=== PATIENT | male | born 1970 | race Caucasian/White ===

== ENCOUNTER → 2016-10-11 10:15 | Outpatient (CLI) | payer MEDICARE, MEDICAID | END | disposition home or self-care (01) | LOC: D.RAD 09-29 11:30 | DX: R13.10 Dysphagia, unspecified (principal) ==

== ENCOUNTER → 2016-10-13 11:03 | Outpatient (CLI) | payer MEDICARE | END | disposition home or self-care (01) | LOC: D.NM 09-28 13:00 | DX: R68.81 Early satiety (principal) ==

== ENCOUNTER → 2018-03-21 07:06 | Outpatient (CLI) | payer MEDICARE ==
[~2018-03-21] VITALS: Ht 180.3 cm; Wt 106.8 kg
--- NOTE | ~2018-03-21 | HEMODYNAMI ---
PATIENT:JAYLA SIBLEY MEDICAL RECORD: [id number] : 66 LOCATION:[facility] ADMISSION DATE: 03/21/18 Generatedon:03/21/201813:02 Patient name: JAYLA SIBLEY Patient #: [id number] SSN: : 1970 Date of study: 03/21/2018 Page: Of Hemodynamic Procedure Report Patient Data Patient Demographics Procedure consent was obtained First Name: JAYLA Gender: Male Last Name: TOÑITO : 1970 [facility] Initial: C Age: 47 year(s) Patient #: [id number] Race: Unknown Additional ID: [id number] Contact details [address]: [address] [place] [address] State: [place] City: [place] Zip code: [address] Past Medical History Allergies Allergen Reaction Date Comments Reported Acetaminophen 03/21/2018 Admission Admission Data Admission Date: 03/21/2018 Admission Time: 7:06 Procedure Procedure Types Cath Procedure Peripheral Cath Diagnostic Procedure Venography Extremity Procedure Description Procedure Date Procedure Date: 03/21/2018 Procedure Start Time: 11:45 Procedure Staff Name Function Atif Paul MD Performing Physician Jossy Montalvoub Manuel Chaves RT Monitor Natacha Mcneill RN Nurse Procedure Data Cath Procedure Fluoroscopy Diagnostic fluoroscopy Total fluoroscopy Time: 14 time: 14 min min Diagnostic fluoroscopy Total fluoroscopy dose: 658 dose: 658 mGy mGy Contrast Material Contrast Material Type Amount (ml) Isovue 300 105 Entry Location Entry Primary Successful Side Size Upsize 1 Upsize Entry Closure Successful Closure Location (Fr) (Fr) 2 (Fr) Remarks Device Remarks Femoral Right 5 Fr 6 Fr Angio-VIP artery Mid-Length 6Fr Procedure Medications Medication Administration Route Dosage Oxygen etCO2 Nasal cannula 4 l/min Lidocaine 1% added to field 20 Heparin Flush Bag added to field 3 bags (1000units/500ml NS) Versed I.V. 2 mg Fentanyl I.V. 50 mcg Fentanyl I.V. 50 mcg Versed I.V. 2 mg Fentanyl I.V. 50 mcg Heparin Bolus I.V. 5000 units Fentanyl I.V. 50 mcg Hemodynamics Rest Heart Rate: 51 (bpm) Snapshots Pre Cath Intra NCS Post Cath Vital Signs Time Heart Resp SPO2 etCO2 NIBP (mmHg) Rhythm Pain Sedation Rate (ipm) (%) (mmHg) Status Level (bpm) 11:21:47 52 18 98 35.2 Measuring SB 0 (11) 10(A) , No pain 11:22:30 48 12 98 37.4 160/95(120) SB 0 (11) 10(A) , No pain 11:27:27 52 14 99 26.2 164/41(135) SB 0 (11) 9(A) , No pain 11:31:57 51 16 98 37.4 159/97(117) SB 0 (11) 9(A) , No pain 11:36:56 50 16 98 35.2 Measuring SB 0 (11) 9(A) , No pain 11:38:18 53 20 97 33.7 Time SB 0 (11) 9(A) Exceeded , No pain 11:42:59 50 25 98 35.2 148/98(114) SB 0 (11) 9(A) , No pain 11:47:21 51 17 97 40.4 135/84(102) SB 0 (11) 8(A) , No pain 11:51:49 49 13 97 52.4 139/79(98) SB 0 (11) 8(A) , No pain 11:56:20 49 8 98 38.9 132/78(100) SB 0 (11) 8(A) , No pain 12:00:46 50 14 92 48.6 138/83(106) SB 0 (11) 8(A) , No pain 12:05:45 48 12 93 41.1 Measuring SB 0 (11) 8(A) , No pain 12:06:14 50 10 92 41.9 127/70(94) SB 0 (11) 8(A) , No pain 12:10:38 47 9 93 37.4 123/77(113) SB 0 (11) 8(A) , No pain 12:14:58 49 9 92 41.1 134/88(104) SB 0 (11) 8(A) , No pain 12:19:24 46 9 92 35.9 137/83(105) SB 0 (11) 8(A) , No pain 12:23:45 45 17 92 29.2 104/87(99) SB 0 (11) 8(A) , No pain 12:27:57 46 18 92 32.2 122/85(108) SB 0 (11) 8(A) , No pain 12:32:17 46 12 100 40.4 133/85(96) SB 0 (11) 8(A) , No pain 12:36:43 49 13 100 31.4 133/82(111) SB 0 (11) 8(A) , No pain 12:41:03 48 13 100 32.9 141/90(113) SB 0 (11) 8(A) , No pain 12:46:02 48 14 100 32.9 Measuring SB 0 (11) 8(A) , No pain 12:46:29 47 16 100 33.6 160/78(124) SB 0 (11) 8(A) , No pain 12:51:28 48 13 100 34.4 Measuring SB 0 (11) 8(A) , No pain 12:52:19 48 14 100 29.9 161/102(126) SB 0 (11) 8(A) , No pain 12:56:37 51 15 99 37.4 142/94(109) SB 0 (11) 8(A) , No pain 13:01:01 50 13 98 26.1 141/97(115) SB 0 (11) 8(A) , No pain Medications Time Medication Route Dose Verified Delivered Reason Notes Effectiveness by by 11:25:56 Oxygen etCO2 4 Atif Manzano used for Nasal l/min sOito Paul RN procedure cannula 11:26:09 Lidocaine 1% added 20ml Atif Srivastava used for to vial Humberto Paul MD procedure field FLORES 11:26:25 Heparin Flush added 3 Atif Srivastava used for Bag to bags Hmuberto Paul MD procedure (1000units/500ml field FLORES NS) 11:44:05 Versed I.V. 2 mg Atif Manzano for sedation Mostly Osito Paul RN sleeping @ 11:51:38 11:44:18 Fentanyl I.V. 50 Atif Zarateine for sedation Mostly mcg Osito Paul RN sleeping @ 11:51:41 11:51:34 Fentanyl I.V. 50 Atif Manzano for sedation Mostly mcg Osito Paul RN sleeping @ 12:01:03 12:00:52 Versed I.V. 2 mg Atif Manzano for sedation Mostly Osito Paul RN sleeping @ 12:10:53 12:00:59 Fentanyl I.V. 50 Atif Manzano for sedation Mostly mcg Osito Paul RN sleeping @ 12:10:47 12:09:07 Heparin Bolus I.V. 5000 Atif Manzano for units Osito Paul RN anticoagulation 12:40:47 Fentanyl I.V. 50 Atif Manzano for sedation mcg Osito Paul RN, MD Procedure Log Time Note 11:06:08 Manuel Andie RT (R) (CV) sent for patient. Start room use. 11:06:20 Time tracking: Regular hours (M-F 7:00 - 5:00) 11:06:26 Plan of Care:Hemodynamics will remain stable., Cardiac rhythm will remain stable., Comfort level will be maintained., Respiratory function will remain adequate., Patient/ family verbilizes understanding of procedure., Procedure tolerated without complication., Recovers from procedure without complications.. 11:06:31 Patient received from Outpatients to IR Alert and oriented. Tansferred to table in Supine position. 11:06:32 Correct patient and procedure confirmed by team. 11:06:34 Signed procedure consent form obtained from patient. 11:06:34 ECG and BP/O2 sat monitors applied to patient. 11:06:36 - 11:06:40 H&P Date Dictated: 03/21/2018 H&P Addendum completed by physician on da y of procedure. (MUST COMPLETE FOR ALL OUTPATIENTS). 11:06:40 Pre-procedure instructions explained to patient. 11:06:41 Pre-op teaching completed and patient verbalized understanding. 11:07:31 Family in waiting room. 11:07:37 Patient NPO since Midnight. 11:08:10 Patient allergic to Acetaminophen 11:08:19 Use device set IR Diagnostic 11:08:20 ACIST Syringe (19712) opened to sterile field. 11:08:21 ACIST Hand Control (73972) opened to sterile field. 11:08:21 ACIST Manifold (60703) opened to sterile field. 11:08:21 Bag Decanter () opened to sterile field. 11:08:22 Sterile Angiographic Pack opened to sterile field. 11:08:31 Is the patient allergic to Iodine/contrast media? No. 11:08:33 Is patient on blood thinner?Yes 11:08:36 ACC The patient was administered the following blood thiners within the last 24 hours: ACCAspirin, ACCPlavix 11:08:38 Patient diabetic? No. 11:08:39 - 11:08:40 ----Pre-sedation anethsthesia assessment.---- 11:08:42 Previous problem with sedation/anesthesia? No ? 11:08:43 Snore? Yes 11:08:45 Sleep apnea? No 11:08:51 Deviated septum? No 11:08:52 Opens mouth fully? Yes 11:08:53 Sticks out tongue? Yes 11:08:56 Airway obstruction? No ? 11:09:06 Dentures? No ? 11:19:57 Vital chart was started 11:19:58 Baseline sample Acquired. 11:20:00 Full Disclosure recording started 11:20:20 Pre procedure: right dorsailis pedis pulse Doppler 11:20:24 Pre procedure: left dorsailis pedis pulse Doppler 11:20:27 Pre procedure: right posterior tibial pulse Doppler 11:20:30 Pre procedure: left posterior tibial pulse Doppler 11:20:34 Patient pain scale 0/10 no pain. 11:20:46 IV patent on arrival in left forearm with 0.9% NaCl at [facility]. 11:20:48 Sharps counted by scrub and verified by R.N. 11:20:48 Alarms reviewed by R. N. 11:20:52 Left groin area was prepped with chlora-prep and draped in sterile fashion 11:25:56 Oxygen 4 l/min etCO2 Nasal cannula was administered by Natacha Mcneill RN; used for procedure; 11:26:09 Lidocaine 1% 20ml vial added to field was administered by Atif Paul MD; used for procedure; 11:26:25 Heparin Flush Bag (1000units/500ml NS) 3 bags added to field was administered by Atif Paul MD; used for procedure; 11:36:31 Tegaderm 4 x 4 (1626W) opened to sterile field. 11:42:14 Physician arrived 11:42:14 --------ALL STOP TIME OUT------ 11:42:15 Final Timeout: patient, procedure, and site verified with staff and physician. All members of the team are in agreement. 11:42:18 Left groin site verified by team. 11:42:23 Sedation plan: IV Moderate Sedation Medication:Versed, Fentanyl 11:44:05 Versed 2 mg I.V. was administered by Natacha Mcneill RN; for sedation; 11:44:18 Fentanyl 50 mcg I.V. was administered by Natacha Mcneill RN; for sedation; 11:45:02 Procedure started. 11:45:06 Local anesthetic to left femerol artery with Lidocaine 1% by Atif Paul MD.INITIAL ACCESS ONLY 11:45:13 Angiodynamics Omniflush 5Fr 65cm (87780811) opened to sterile field. 11:45:13 SHEATH 5FR Carmel (GTD595) opened to sterile field. 11:45:13 DOC .035 wire (I32151) opened to sterile field. 11:45:14 Micropuncture VSI 4FR kit opened to sterile field. 11:45:14 TUBING Contrast Injection High Pressure (HDN329S) opened to sterile field. 11:51:34 Fentanyl 50 mcg I.V. was administered by Natacha Mcneill RN; for sedation; 11:51:38 Effectiveness of Versed delivered @ 11:44:05 is: Mostly sleeping 11:51:41 Effectiveness of Fentanyl delivered @ 11:44:18 is: Mostly sleeping 11:52:42 OSBORN 260 wire (D01389) opened to sterile field. 11:53:28 GLIDE CATHETER 5FR ANGLED 65cm (CG507) opened to sterile field. 11:53:49 GLIDE WIRE ANGLE 180cm (NT5389) opened to sterile field. 11:54:02 TORQUE DEVICE PLASTIC .038 ( TD01) opened to sterile field. 12:00:52 Versed 2 mg I.V. was administered by Natacha Mcneill RN; for sedation; 12:00:59 Fentanyl 50 mcg I.V. was administered by Natacha Mcneill RN; for sedation; 12:01:03 Effectiveness of Fentanyl delivered @ 11:51:34 is: Mostly sleeping 12:02:57 A 5 Fr sheath was inserted into the Right Femoral artery 12:03:09 SHEATH 6FR Destination (RSR01) opened to sterile field. 12:03:31 Sheath upsized to a 6 Fr Mid-Length. 12:04:34 CXI SUPPORT .035 135 CM STR catheter (K33458) opened to sterile field. 12:07:39 GLIDE WIRE MERIT Angled 260cm ([id number]) opened to sterile field. 12:09:07 Heparin Bolus 5000 units I.V. was administered by Natacha Mcneill RN; for anticoagulation; 12:10:47 Effectiveness of Fentanyl delivered @ 12:00:59 is: Mostly sleeping 12:10:53 Effectiveness of Versed delivered @ 12:00:52 is: Mostly sleeping 12:12:13 ROADRUNNER .035 260 glide wire (U57043) opened to sterile field. 12:17:48 Trailblazer 0.035 135cm catheter ([id number]) opened to sterile field. 12:31:06 PULSE OLXIMETER SWITCHED TO EAR NOT PICKING UP GOOD 12:34:46 SHEATH 6FR Carmel (ZKF953) opened to sterile field. 12:39:30 EXOSEAL 6Fr (EX600) opened to sterile field. 12:40:47 Fentanyl 50 mcg I.V. was administered by Natacha Mcneill RN; for sedation; 12:47:52 ANGIOSEAL-VIP PLUS 6 FR opened to sterile field. 12:49:36 Sheath removed intact; hemostasis achieved with Angio-VIP 6Fr to the Right Femoral artery. 12:50:05 Procedure ended.(Physican Out) 12:50:13 Fluoroscopy time 14.00 minutes. 12:50:17 Flurop Dose total: 658 12:50:17 Fluoroscopy dose: 658 mGy 12:50:20 Sharps counted by scrub and verified by R.N. 12:50:24 Insertion/operative site no bleeding no hematoma. 12:50:27 Post-op/insertion site Left Femoral artery dressed using a 4 x 4 and Tegaderm. 12:50:31 Post left femerol artery:stable 12:50:35 Post Procedure Pulses reassessed and unchanged 12:50:36 Post procedure instruction explained to patient.Patient verbalizes understanding. 12:50:37 Procedure and supply charges have been captured, reviewed, submitted an d are correct. 12:58:00 Contrast amount:Isovue 300 105ml. 13:01:44 Report given to Outpatients. 13:01:47 Patient transfered to Outpatients with Stretcher. 13:02:11 Vital chart was stopped Device Usage Item Name Manufacture Quantity Catalog Number Hospital Part Current Minimal Lot# / Charge Number Stock Stock Serial# Code ACIST Syringe Acist Medical 1 62183 172764 194568 374278 20 (78901) Systems Inc ACIST Hand Acist Medical 1 45044 803252 509737 646720 5 Control (81946) Systems Inc ACIST Manifold Acist Medical 1 60683 103193 118096 385232 5 (27632) Systems Inc Bag Decanter Microtek 1 2001S 787210 89168 818675 5 (2001S) Medical Inc. Sterile Cardinal 1 [id number] 321501 636755 5 Angiographic Health Pack Tegaderm 4 x 4 3M 1 1626W 195605 899663 371711 5 (1626W) Angiodynamics Angiodynamics 1 77556048 470448 042555 965815 5 Omniflush 5Fr 65cm (47314651) SHEATH 5FR Terumo 1 HMK284 151755 675628 705811 40 Carmel (ZGW730) DOC .035 wire Cook Medical 1 F45423 126746 873787 5 (T04064) Micropuncture VSI VASCULAR 1 7266V 836182 264880 5 VSI 4FR kit SOLUTIONS TUBING Contrast Merit Medical 1 FPL098A 621256 683396 031708 5 Injection High Pressure (OSY934Q) OSBORN 260 wire Cook Medical 1 E24733 711927 07750 788803 5 (V33764) GLIDE CATHETER Terumo 1 CG507 447217 225985 5 5FR ANGLED 65cm (CG507) GLIDE WIRE Terumo 1 SH7628 717716 985973 759696 5 ANGLE 180cm (AX1738) TORQUE DEVICE [place] 1 TD01 564109 923929 526961 5 PLASTIC .038 ( Scientific TD01) SHEATH 6FR Terumo 1 RSR01 856290 07971 746626 5 Destination (RSR01) CXI SUPPORT Cook Medical 1 B84671 073113 535902 576522 5 9857900 .035 135 CM STR catheter (V56374) GLIDE WIRE [facility] Medical 1 [id number] 229728 876552 107850 5 [id number] MERIT Angled 260cm ([id number]) ROADRUNNER .035 Cook Medical 1 I58899 713461 346532 918879 5 1501118 260 glide wire (Y67686) Trailblazer Medtronic 1 ASC-035-135 232489 21804 645315 5 0.035 135cm catheter ([id number]) SHEATH 6FR Terumo 1 ITV682 620713 656367 068557 40 Carmel (JWP582) EXOSEAL 6Fr Cardinal 1 EX600 282890 805795 549699 10 [id number] (EX600) Health ANGIOSEAL-VIP [facility] [place] 1 986927 070925 984197 5 [id number] PLUS 6 FR Signature Audit [place] Time Signature Unsigned Intra-Procedure 03/21/2018 [place] 1:02:07 PM [place] RT (R) (CV) Signatures Monitor : Manuel Signature : [place] RT Date : Time : [facility] [address] [place] [address]
[~2018-03-21 07:06] MED LIST: BAYER CHEWABLE81 MG PO; PLAVIX75 MG PO
[2018-03-21 07:40] LABS: BASOPHILS 0.3 % (0-2); EOSINOPHILS 3.2 % (0-7); HEMATOCRIT 44.4 % (42.0-54.0); IMMATURE GRANULOCYTES 0.1 % (0-5); LYMPHOCYTES 34.1 % (15-50); MCH 32.3 pg (26.0-34.0); MCV 89.7 fL (80.0-100.0); MEAN PLATELET VOLUME 9.5 fL (7.4-10.4); MONOCYTES 5.4 % (2-11); NEUTROPHILS 56.9 % (40-80); PLATELET COUNT 167 10x3/uL (130-400); RBC 4.95 10x6/uL (4.20-6.10); RDW 13.2 % (11.5-14.5); WBC 6.8 10x3/uL (4.8-10.8)
[2018-03-21 08:01] LABS: APTT 27.3 SECONDS (22.8-39.4); CALC OSMOLALITY 281 mosm/kg (275-300); CALCIUM 9.6 mg/dL (8.5-10.1); CARBON DIOXIDE 27.8 mmol/L (21.0-32.0); CHLORIDE - SERUM 103 mmol/L (98-107); GLUCOSE 103 mg/dL (74-106); INR 1.01 (0.85-1.17); POTASSIUM - SERUM 4.1 mmol/L (3.5-5.1); PROTIME 12.9 SECONDS (11.6-15.0); SODIUM 140 mmol/L (136-145); UREA NITROGEN 21 mg/dL (7-18); eGFR NON AFRICAN AMERICAN 84 mL/min (90-120)
[2018-03-21 08:42] VITALS: BP 147/74; Ht 180.3 cm; Wt 106.8 kg
== END | disposition home or self-care (01) ==
LOC: D.RAD 03-20 10:00 → D.SP 07:06 → D.RAD 10:00
PROVIDERS: General Practice
DX: I70.411 Atherosclerosis of autologous vein bypass graft(s) of the extremities with intermittent claudication, right leg (principal); I70.92 Chronic total occlusion of artery of the extremities

== ENCOUNTER → 2018-03-27 13:27 | Outpatient (CLI) | payer MEDICARE ==
[2018-03-21 08:42] VITALS: BMI 32.8
== END | disposition home or self-care (01) ==
LOC: D.RAD 13:27
DX: I73.9 Peripheral vascular disease, unspecified (principal)

== ENCOUNTER 2018-04-11 05:15 | Inpatient (IN) | payer MEDICARE, MEDICAID ==
[2018-04-09 14:39] LABS: BASOPHILS 0.3 % (0-2); HEMATOCRIT 47.5 % (42.0-54.0); HEMOGLOBIN 16.6 g/dL (13.5-17.5); LYMPHOCYTES 32.5 % (15-50); MCHC 34.9 g/dL (31.0-37.0); MCV 91.7 fL (80.0-100.0); MONOCYTES 5.9 % (2-11); NEUTROPHILS 58.3 % (40-80); PLATELET COUNT 179 10x3/uL (130-400); RBC 5.18 10x6/uL (4.20-6.10); RDW 13.3 % (11.5-14.5); WBC 5.7 10x3/uL (4.8-10.8)
[2018-04-09 14:53] LABS: APPEARANCE CLEAR (CLEAR); COLOR YELLOW (YELLOW)
[2018-04-09 14:54] LABS: BILIRUBIN NEGATIVE (NEGATIVE); GLUCOSE NEGATIVE (NEGATIVE); KETONE NEGATIVE (NEGATIVE); NITRITE NEGATIVE (NEGATIVE); PROTEIN NEGATIVE (NEGATIVE); UROBILINOGEN NORMAL (NORMAL)
[2018-04-09 14:58] LABS: APTT 27.9 SECONDS (22.8-39.4); INR 1.01 (0.85-1.17); PROTIME 12.9 SECONDS (11.6-15.0)
[2018-04-09 15:07] LABS: ALBUMIN 4.1 g/dL (3.4-5.0); ALKALINE PHOSPHATASE 43 U/L (46-116); ALT (SGPT) 30 U/L (10-68); BILIRUBIN - TOTAL 1.25 mg/dL (0.2-1.3); CALC OSMOLALITY 279 mosm/kg (275-300); CALCIUM 9.1 mg/dL (8.5-10.1); CARBON DIOXIDE 27.3 mmol/L (21.0-32.0); CHLORIDE - SERUM 103 mmol/L (98-107); CREATININE - SERUM 1.1 mg/dL (0.6-1.3); GLUCOSE 91 mg/dL (74-106); POTASSIUM - SERUM 3.7 mmol/L (3.5-5.1); PROTEIN - SERUM 7.9 g/dL (6.4-8.2); SODIUM 140 mmol/L (136-145); UREA NITROGEN 16 mg/dL (7-18); eGFR NON AFRICAN AMERICAN 75 mL/min (90-120)
[~2018-04-11] VITALS: Ht 175.3 cm; Wt 115.5 kg
[2018-04-11] VITALS (25 sets, daily range): BP systolic 116–146; BP diastolic 63–82; Ht 175.3 cm; Wt 115.5 kg
--- NOTE | ~2018-04-11 | MORECARE ---
CASE MANAGEMENT DISCHARGE SUMMARY PATIENT: JAYLA SIBLEY UNIT: [id number] ADM DATE: 04/11/18 AGE: 47 : [birth year] SEX: M ROOM/BED: D[facility] AUTHOR: HOSEADOC PHYSICIAN: REFERRING PHYSICIAN: YIFAN FRANCO MD DATE OF SERVICE: 04/15/18 Discharge Plan Patient Name: JAYLA SIBLEY Facility: [facility]:[place] : 1970 Planned Disposition: Home Anticipated Discharge Date: Discharge Date: 04/15/2018 Expected LOS: Initial Reviewer: [email or web address] Initial Review Date: 04/12/2018 Generated: 04/15/18 6:43 pm Comments DCP- Discharge Planning Updated by [email or web address]: Angelia Houser on 04/15/18 1:[address] IMM explained and served 04/15/18 @ [facility]. Patient denies any discharge needs at this time. CM will continue to follow and assist as needed with discharge planning / needs. DCP- Discharge Planning Updated by [email or web address]: Angelia Houser on 04/12/18 6:[address] Patient Name: JAYLA SIBLEY Admission Status: Elective Accout number: [id number] Admission Date: 04-11-2018 : 1970 Admission Diagnosis:ATHSCL KETCHIKAN ARTERIES OF EXTRM W INTRMT CECI, RIGHT L Attending: YIFAN FRANCO Current LOS: 1 Anticipated DC Date: Planned Disposition: Home Primary Insurance: WELLConsumer Agent Portal (CAP) MEDICARE ADV Discharge Planning Comments: CM met with patient at bedside after obtaining verbal consent. Patient states he plans on returning home after discharge with his mother. Patient states he will have family transport him home via private vehicle. CM will set up patient with walker for home. CM contacted [place] Patient and records faxed. Walker to be delivered to patients room. CM will continue to follow and assist as needed for discharge planning / needs. Java Tech: Angelia Houser DCPIA - Discharge Planning Initial Assessment Updated by [email or web address]: Angelia Houser on 04/12/18 6:58 pm * Is the patient Alert and Oriented? Yes * How many steps to enter\exit or inside your home? * PCP no pcp * Preadmission Environment Home with Family * ADLs Independent * Equipment None * List name and contact numbers for known caregivers / representatives who currently or will assist patient after discharge: Michelle Maradiaga [phone] * Verbal permission to speak to the caregivers and representatives has been obtained from the patient. N/A * Community resources currently utilized None * Additional services required to return to the preadmission environment? No * Can the patient safely return to the preadmission environment? Yes * Has this patient been hospitalized within the prior 30 days at any hospital? 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
--- NOTE | ~2018-04-11 | HP ---
PATIENT: JAYLA SIBLEY MEDICAL RECORD: [id number] ACCOUNT: [id number] LOCATION:[facility] : [birth year] ADMISSION DATE: 04/11/18 PCP: YIFAN FRANCO MD HISTORY AND PHYSICAL EXAMINATION JAYLA Rush (47yo, M) ID# [id number]. Date/Time04/03/2018 11:49FPTBM02/26/1969[facility] ClinicProviderDANINATALEE FRANCO MDInsuranceMed Primary: WELLCARE (MEDICARE REPLACEMENT/ADVANTAGE - HMO) Insurance # : [id number] Employer Name : DISABLED Med Secondary: [place] Insurance # : [id number] Employer Name : N/A Prescription: CMX - Member is eligible. Prescription: [facility] MEDICAID ADMINISTRATION - Member is eligible. Chief Complaint PVD - peripheral vascular disease EVALUATE FOR POSSIBLE ABF Patient's Care Team Primary Care Provider: LUPIS LYNCH MD: [address] [facility] [address], [place] [address], , Vitals BP:124/78 sitting R arm 04/03/2018 12:07 pmBP Cuff Size:adult 04/03/2018 12:07 pmHR:68/REG 04/03/2018 12:07 pmHt:5 ft 9 in 04/03/2018 12:03 pmWt:244 lbs 04/03/2018 12:03 pmBMI:36 04/03/2018 12:03 pmAllergies Reviewed Allergies TYLENOLMedications Reviewed Medications amoxicillin 500 mg eprflcq45/13/18 filledCaremarkazithromycin 250 mg xjexux26/26/18 filledCaremarkcephALEXin 500 mg jhhuxxt76/01/18 filledCaremarkclarithromycin 500 mg uhfgik13/13/18 filledCaremarkclopidogrel 75 mg ucburt45/10/18 filledCaremarkfamotidine 40 mg lsjnqe90/17/18 filledCaremarkgabapentin 300 mg uxdwjwc02/07/18 filledCaremarkmetoclopramide 5 mg ijtsrx93/25/18 filledCaremarkomeprazole 40 mg capsule,delayed rifnhok35/13/18 filledCaremarkpredniSONE 20 mg myaeqr50/26/18 filledCaremarksucralfate 1 gram /16/18 filledCaremarkvenlafaxine ER 37.5 mg capsule,extended release 24 hr09/04/17 filledCaremarkvenlafaxine ER 75 mg capsule,extended release 24 hr09/25/17 filledCaremarkVentolin HFA 90 mcg/actuation aerosol wygbraz16/26/18 filledCaremarkProblems Reviewed Problems Peripheral arterial occlusive disease - Onset: 03/22/2018 Cirrhosis of liver Family History Reviewed Family History Father- Alcoholism - Drug abuse - Chronic obstructive lung diseaseMother- Alcoholism - Drug abuse - Chronic obstructive lung diseaseSocial History Reviewed Social History Cardiology Family history of heart disease?: N Smoking Status: Current every day smoker Smoker (1 PPD) High Cholesterol: N HISTORY AND PHYSICAL [id number] JAYLA SIBLEY High blood pressure: N Alcohol intake: None Surgical History Reviewed Surgical History Other - bilateral legs Other - right eye Past Medical History Reviewed Past Medical History Hepatitis: Y - C per history Liver Disease: Y - cirrhosis Documents for Discussion N/A Screening None recorded. HPI thirty-year status post traumatic injury to the right thigh with superficial femoral revascularization. The records are not available but apparently underwent initial bypass that sy d to be resolved devised using the left greater saphenous vein. Continues to smoke. Increasing claudication symptoms of the right lower extremity but no ulceration or rest pain. ROS Additionally reports: As reviewed in the chart with the patient He reports he developed hepatitis C after blood transfusions from the previous traumatic injury with resultant cirrhosis Physical Exam Patient is a 47-year-old male. Constitutional: General Appearance well nourished and developed and healthy-appearing. Level of Distress NAD. Ambulation ambulating normally. Cardiovascular: Heart Auscultation no murmurs, rubs, or gallops and RRR. Arterial Pulses no Doppler pedal pulses on the right lower extremity Strong palpable right femoral pulse. Edema no edema and varicosities; superficial varicosities along the right ankle and foot, to a lesser extent along the left ankle. Lungs: Repiratory Effort no dyspnea. Auscultation no wheezing, rhonchi, or rales / crackles and breathing sounds normal and good air movement. Abdomen: Inspection and Palpation no tenderness or guarding and soft and non-distended. Liver no hepatomegaly. Spleen no splenomegaly. Ears, Nose, Throat: Hearing grossly normal hearing. Oropharynx: moist mucous membranes. Musculoskeletal System: Gait And Stance normal gait and stance. Digits and Nails normal nails and no cyanosis. Joints, Bones, and Muscles normal strength and movement of all extremities. Neurologic: Cranial Nerves grossly intact. Sensation grossly intact. Lymph Nodes: Lymph Nodes no axillary LAD. HISTORY AND PHYSICAL [id number] WHITE,JAYLA C Eyes: Lids and Conjunctivae non-injected and no pallor. Pupils PERRLA. EOM EOMI. Sclerae non-icteric. Neck: Neck no masses, enlarged lymph nodes, or carotid bruits and supple and trachea midline. Thyroid no enlargement. Skin: Inspection and Palpation no rash, lesions, ulcers, or jaundice. Assessment / Plan 1. Peripheral vascular disease I73.9: Peripheral vascular disease, unspecified PERIPHERAL ARTERIAL DISEASE OF THE LEG: CARE INSTRUCTIONS 2. Injury of artery of lower limb S75.021A: Major laceration of femoral artery, right leg, initial encounter Patient Instructions discontinue smoking immediately and totally Discussion Notes occluded mid superficial femoral artery with reconstitution of the anterior tibial via small colla terals that crosses the knee. The distal popliteal appears to be involved with arterial sclerosis or possibly had a previous anastomosis site but the posterior tibial fills retrograde via collateral from the anterior tibial. Review of the vein mapping shows no vein available in the left greater saphenous below the previous harvest site. Possibly some vein in the right lower extremity at the calf level. Left lesser saphenous is available. might well require a composite graft based off the mid right superficial femoral with enough vein to cross the knee hopefully through the popliteal space but possibly requiring a counter incision The patient reports that decision for amputation was close at the time of injury. He understands that this revascularization could lead to amputation. He also understands the need for smoking cessation. risks alternatives and benefits discussed, consent given YIFAN FRANCO MD at 1235 CC: [id number] DICTATION DATE: 04/03/18 1120 ELECTRICAL FITTER: ILDEFONSO 04/11/18 1551 ADM IN [place] [id number] [place] [id number]
--- NOTE | ~2018-04-11 | MORECARE ---
CASE MANAGEMENT DISCHARGE SUMMARY PATIENT: JAYLA SIBLEY UNIT: [id number] ADM DATE: 04/11/18 AGE: 47 : 66 SEX: M ROOM/BED: D[facility] AUTHOR: CYNTHIA JC PHYSICIAN: REFERRING PHYSICIAN: YIFAN FRANCO MD DATE OF SERVICE: 04/12/18 Discharge Plan Patient Name: JAYLA SIBLEY [facility] [facility] 1970 Planned Disposition: Home Anticipated Discharge Date: Discharge Date: Expected LOS: Initial Reviewer: [email or web address] Initial Review Date: 04/12/2018 Generated: 04/12/18 8:02 pm DCPIA - Discharge Planning Initial Assessment Updated by [email or web address]: Angelia Houser on 04/12/18 6:58 pm * Is the patient Alert and Oriented? Yes * How many steps to enter\exit or inside your home? * PCP no pcp * Preadmission Environment Home with Family * ADLs Independent * Equipment None * List name and contact numbers for known caregivers / representatives who currently or will assist patient after discharge: Michelle Maradiaga [phone] * Verbal permission to speak to the caregivers and representatives has been obtained from the patient. N/A * Community resources currently utilized None * Additional services required to return to the preadmission environment? No * Can the patient safely return to the preadmission environment? Yes * Has this patient been hospitalized within the prior 30 days at any hospital? No External Providers External Provider: [facility] Next Contact Date: Service Request Date: Service Type: Resolution: Reviewer: Comments: Patient Name: JAYLA SIBLEY Page 86911 at 1902 All edits/amendments must be made on the electronic document DICTATION DATE: 04/12/181901 SHIPYARD PAINTER HELPER: ILDEFONSO 04/12/181901 RPT#: [id number] DC DATE: STATUS: ADM IN [facility] [address] [place] [address] END OF REPORT
--- NOTE | ~2018-04-11 | MORECARE ---
CASE MANAGEMENT DISCHARGE SUMMARY PATIENT: JAYLA SIBLEY UNIT: [id number] ADM DATE: 04/11/18 AGE: 47 : [birth year] SEX: M ROOM/BED: D[facility] AUTHOR: CYNTHIA JC PHYSICIAN: REFERRING PHYSICIAN: YIFAN FRANCO MD DATE OF SERVICE: 04/12/18 Discharge Plan Patient Name: JAYLA SIBLEY Facility: [facility]:[place] : 1970 Planned Disposition: Home Anticipated Discharge Date: Discharge Date: Expected LOS: Initial Reviewer: [email or web address] Initial Review Date: 04/12/2018 Generated: 04/12/18 8:10 pm Comments DCP- Discharge Planning Updated by [email or web address]: Angelia Houser on 04/12/18 6:[address] Patient Name: JAYLA SIBLEY Admission Status: Elective Accout number: [id number] Admission Date: 04-11-2018 : 1970 Admission Diagnosis:ATHSCL [place] ARTERIES OF EXTRM W INTRMT CECI, RIGHT L Attending: YIFAN FRANCO Current LOS: 1 Anticipated DC Date: Planned Disposition: Home Primary Insurance: [employer] ADV Discharge Planning Comments: CM met with patient at bedside after obtaining verbal consent. Patient states he plans on returning home after discharge with his mother. Patient states he will have family transport him home via private vehicle. CM will set up patient with walker for home. CM contacted [facility] and records faxed. Walker to be delivered to patients room. CM will continue to follow and assist as needed for discharge planning / needs. Environmental Studies Faculty Member: Angelia Houser DCPIA - Discharge Planning Initial Assessment Updated by [email or web address]: Angelia Houser on 04/12/18 6:58 pm * Is the patient Alert and Oriented? Yes * How many steps to enter\exit or inside your home? * PCP no pcp * Preadmission Environment Home with Family * ADLs Independent * Equipment None * List name and contact numbers for known caregivers / representatives who currently or will assist patient after discharge: Michelle Maradiaga [phone] * Verbal permission to speak to the caregivers and representatives has been obtained from the patient. N/A * Community resources currently utilized None * Additional services required to return to the preadmission environment? No * Can the patient safely return to the preadmission environment? Yes * Has this patient been hospitalized within the prior 30 days at any hospital? No Last DP export: 04/12/18 6:02 Patient Name: JAYLA SIBLEY Page 02840 at 1910 All edits/amendments must be made on the electronic document DICTATION DATE: 04/12/181908 MANAGER TRADE: ILDEFONSO 04/12/181908 RPT#: [id number] DC DATE: STATUS: ADM IN [facility] [address] [place] [address] END OF REPORT
--- NOTE | ~2018-04-11 | OP ---
PATIENT NAME: JAYLA SIBLEY MEDICAL RECORD: [id number] :66 [facility] ADMISSION DATE:04/11/18 SURGEON: ARI FRANCO MD DATE OF OPERATION: 04/11/2018 SURGEON: Ari Franco MD RUG CUTTER: JAYLON London OPERATION PERFORMED: Right femoral to anterior tibial bypass utilizing PTFE graft. PREOPERATIVE DIAGNOSES: History of right leg trauma with superficial femoral artery occlusion and bypass graft, greater than 20 years previously, short distance claudication, right lower extremity. POSTOPERATIVE DIAGNOSES: History of right leg trauma with superficial femoral artery occlusion and bypass graft, greater than 20 years previously, short distance claudication, right lower extremity. ANESTHESIA: General endotracheal anesthesia. ESTIMATED BLOOD LOSS: 400 with Cell Saver. SPECIMENS: None. CONDITION: Stable. DISPOSITION: ICU. OPERATIVE FINDINGS: 1. Occluded distal popliteal artery about 3 mm proximal anterior tibial artery able to be exposed from the medial side by dividing a small amount of the interosseous membrane. 2. Distal common femoral artery with no significant disease. Good Doppler signal after opening the graft with good augmentation. OPERATIVE INDICATION: Right leg claudication and superficial femoral artery occlusion due to trauma with occluded previous bypass grafts. PROCEDURE IN DETAIL: The patient was brought to the operative suite. General anesthesia was obtained, the patient was prepped and draped. Incision was made in the right leg. The right lower leg greater saphenous vein was spared. The popliteal fossa was entered and dissection of the lower leg muscle was taken off of the posterior aspect of the tibia to identify the tibioperoneal. Tibioperoneal trunk was encircled. A large anterior tibial vein had to be divided to expose the origin of the anterior tibial artery, which was then dissected out, total of about 6 cm through the interosseous membrane to a large branch point. Both of its branches were encircled with vessel loops and the distal popliteal was also encircled with a vessel loop. Incision was made just below the groin crease, taken down to the femoral artery where the femoral artery, superficial femoral artery, profunda femoral arteries were dissected out. A tunnel was made between the 2 incisions and a tapering 7-4 mm ringed PTFE graft was passed through the tunnel. Heparin was given. OPERATIVE REPORT [id number] JAYLA SIBLEY After the heparin had circulated, inflow was clamped and backbleeding was controlled with vessel loops. Vertical arteriotomy was made in the distal common femoral and proximal anastomosis was performed. The graft was flushed. Hemostasis was ensured. The anterior tibial was opened after briefly opening the distal popliteal, which had no significant lumen and closing this area with 7-0 Prolene distal anastomosis to the proximal anterior tibial was performed. Backbleeding was allowed. The anastomosis was tied down. Flow was restored. Good Doppler signal was noted. Protamine was given. Hemostasis was ensured, good augmented signals noted including a good Doppler dorsalis pedis at the foot. Surgicel was used for hemostasis. Thorough antibiotic irrigation was used to both wound. A drain was placed in the lower incision. Both wounds were closed in double running layer and then skin clips. The patient was stable to the CV ICU. TRANSINT:[id number] Voice Confirmation ID: [id number] DOCUMENT ID: [id number] ARI FRANCO MD at 1236 CC: LUPIS LYNCH MD and NADIYA GRAVES MD [id number] DICTATION DATE: 04/11/18 1432 HYDROLOGY PROFESSOR: 04/11/18 1518 ADM IN [facility] [address] [place] [address]
--- NOTE | ~2018-04-11 | MORECARE ---
CASE MANAGEMENT DISCHARGE SUMMARY PATIENT: JAYLA SIBLEY UNIT: [id number] ADM DATE: 04/11/18 AGE: 47 : 66 SEX: M ROOM/BED: D[facility] AUTHOR: CYNTHIA JC PHYSICIAN: REFERRING PHYSICIAN: YIFAN FRANCO MD DATE OF SERVICE: 04/15/18 Discharge Plan Patient Name: JAYLA SIBLEY Facility: [facility]:[place] : 1970 Planned Disposition: Home Anticipated Discharge Date: Discharge Date: Expected LOS: Initial Reviewer: [email or web address] Initial Review Date: 04/12/2018 Generated: 04/15/18 3:16 pm Comments DCP- Discharge Planning Updated by [id number]: Angelia Houser on 04/15/18 1:[address] IMM explained and served 04/15/18 @ 1135. Patient denies any discharge needs at this time. CM will continue to follow and assist as needed with discharge planning / needs. DCP- Discharge Planning Updated by [email or web address]: Angelia Houser on 04/12/18 6:[address] Patient Name: JAYLA SIBLEY Admission Status: Elective Accout number: [id number] Admission Date: 04-11-2018 : 1970 Admission Diagnosis:ATHSCL [place] ARTERIES OF EXTRM W INTRMT CECI, RIGHT L Attending: YIFAN FRANCO Current LOS: 1 Anticipated DC Date: Planned Disposition: Home Primary Insurance: [employer]IC[employer] ADV Discharge Planning Comments: CM met with patient at bedside after obtaining verbal consent. Patient states he plans on returning home after discharge with his mother. Patient states he will have family transport him home via private vehicle. CM will set up patient with walker for home. CM contacted [facility] and records faxed. Walker to be delivered to patients room. CM will continue to follow and assist as needed for discharge planning / needs. Resource Recovery Engineer: Angelia Houser DCPIA - Discharge Planning Initial Assessment Updated by [id number]: Angelia Houser on 04/12/18 6:58 pm * Is the patient Alert and Oriented? Yes * How many steps to enter\exit or inside your home? * PCP no pcp * Preadmission Environment Home with Family * ADLs Independent * Equipment None * List name and contact numbers for known caregivers / representatives who currently or will assist patient after discharge: Michelle Maradiaga [phone] * Verbal permission to speak to the caregivers and representatives has been obtained from the patient. N/A * Community resources currently utilized None * Additional services required to return to the preadmission environment? No * Can the patient safely return to the preadmission environment? Yes * Has this patient been hospitalized within the prior 30 days at any hospital? No Coverage Notice Reviewer: [id number] Collette Houser Notice Issued Date-Time: 04/15/2018 11:35 Notice Type: IM Discharge Notice Notice Delivered To: Patient Relationship to Patient: Self Coffee Sampler Name: Delivery Method: HAND - Hand Delivered Janeth Days: Prior Verbal Notification: Recipient Understood Notice: Yes Recipient Signature: Yes Med Rec Note Co-signed by Attending: Coverage Notice Comment: Last DP export: 04/12/18 6:10 Patient Name: JAYLA SIBLEY Page 78107 at 1416 All edits/amendments must be made on the electronic document DICTATION DATE: 04/15/18 1416 HIGH SCHOOL TUTOR: ILDEFONSO 04/15/18 1416 RPT#: [id number] DC DATE: STATUS: ADM IN [facility] [address] [place] [address] END OF REPORT
[2018-04-11 13:37] LABS: HEMATOCRIT 38.5 % (42.0-54.0)
[2018-04-11 13:38] LABS: HEMOGLOBIN 13.2 g/dL (13.5-17.5)
[2018-04-12] VITALS (23 sets, daily range): BP systolic 98–139; BP diastolic 61–84
[2018-04-12 05:41] LABS: HEMATOCRIT 37.5 % (42.0-54.0); HEMOGLOBIN 12.8 g/dL (13.5-17.5); MCH 31.6 pg (26.0-34.0); MCHC 34.1 g/dL (31.0-37.0); MCV 92.6 fL (80.0-100.0); MEAN PLATELET VOLUME 9.6 fL (7.4-10.4); RBC 4.05 10x6/uL (4.20-6.10); RDW 13.5 % (11.5-14.5); WBC 8.1 10x3/uL (4.8-10.8)
[2018-04-12 06:05] LABS: ALBUMIN 3.2 g/dL (3.4-5.0); ALKALINE PHOSPHATASE 34 U/L (46-116); ALT (SGPT) 25 U/L (10-68); BILIRUBIN - TOTAL 1.18 mg/dL (0.2-1.3); CALC OSMOLALITY 280 mosm/kg (275-300); CALCIUM 7.5 mg/dL (8.5-10.1); CARBON DIOXIDE 28.7 mmol/L (21.0-32.0); CHLORIDE - SERUM 106 mmol/L (98-107); CREATININE - SERUM 0.9 mg/dL (0.6-1.3); GLUCOSE 113 mg/dL (74-106); POTASSIUM - SERUM 4.1 mmol/L (3.5-5.1); PROTEIN - SERUM 6.2 g/dL (6.4-8.2); SODIUM 141 mmol/L (136-145); UREA NITROGEN 11 mg/dL (7-18); eGFR NON AFRICAN AMERICAN > 90 mL/min (90-120)
[2018-04-12] MEDS ORDERED: ASPIRIN325 MG PO (10:55)
[2018-04-12] MEDS ORDERED: COLACE100 MG PO (10:58)
[2018-04-12] MEDS ORDERED: oxyCODONE IR PO (10:59)
[2018-04-13] VITALS (22 sets, daily range): BP systolic 97–154; BP diastolic 34–79
[2018-04-14] VITALS (14 sets, daily range): BP systolic 99–127; BP diastolic 50–69
[2018-04-15 03:00] VITALS: BP 134/63
[2018-04-15 07:00] VITALS: BP 110/65
[2018-04-15 07:23] LABS: BASOPHILS 0.3 % (0-2); EOSINOPHILS 3.7 % (0-7); HEMATOCRIT 32.3 % (42.0-54.0); IMMATURE GRANULOCYTES 0.2 % (0-5); LYMPHOCYTES 25.5 % (15-50); MCH 31.1 pg (26.0-34.0); MCHC 34.1 g/dL (31.0-37.0); MCV 91.2 fL (80.0-100.0); MONOCYTES 9.7 % (2-11); NEUTROPHILS 60.6 % (40-80); RBC 3.54 10x6/uL (4.20-6.10); RDW 12.8 % (11.5-14.5); WBC 6.2 10x3/uL (4.8-10.8)
[2018-04-15 07:31] LABS: PLATELET COUNT 123 10x3/uL (130-400)
[2018-04-15] MEDS ORDERED: KEFLEX500 MG PO (10:50)
[2018-04-15 11:00] VITALS: BP 103/68
== END 2018-04-15 15:00 | disposition home or self-care (01) | DRG 254 ==
LOC: D.CVICU 05:15 → D.SDCHOLD 05:15 → D.CVICU 09:07
PROVIDERS: Internal Medicine Cardiovascular Disease; Thoracic Surgery (Cardiothoracic Vascular Surgery)
PROC: 061M0JY Bypass Right Femoral Vein to Lower Vein with Synthetic Substitute, Open Approach (ICD-10-PCS; principal; 2018-04-11 07:30)
DX: I70.211 Atherosclerosis of native arteries of extremities with intermittent claudication, right leg (principal); K74.60 Unspecified cirrhosis of liver; F17.200 Nicotine dependence, unspecified, uncomplicated; Z86.19 Personal history of other infectious and parasitic diseases; S85.911 Laceration of unspecified blood vessel at lower leg level, right leg; X58.XXXS Exposure to other specified factors, sequela; L53.9 Erythematous condition, unspecified; I70.301 Unspecified atherosclerosis of unspecified type of bypass graft(s) of the extremities, right leg

== ENCOUNTER 2018-04-29 14:47 | Inpatient (IN) | payer MEDICARE, MEDICAID ==
[~2018-04-29] VITALS: Ht 180.3 cm; Wt 106.7 kg
--- NOTE | ~2018-04-29 | MORECARE ---
CASE MANAGEMENT DISCHARGE SUMMARY PATIENT: JAYLA SIBLEY UNIT: [id number] ADM DATE: 04/29/18 AGE: 47 : 66 SEX: M ROOM/BED: D[facility] AUTHOR: HOSEA,DOC PHYSICIAN: REFERRING PHYSICIAN: YIFAN FRANCO MD DATE OF SERVICE: 05/03/18 Discharge Plan Patient Name: JAYLA SIBLEY Facility: [facility]:[place] : 1970 Planned Disposition: Home Anticipated Discharge Date: Discharge Date: 05/03/2018 Expected LOS: Initial Reviewer: [email or web address] Initial Review Date: 05/01/2018 Generated: 05/03/18 4:50 pm Comments DCP- Discharge Planning Updated by [email or web address]: Angelia Houser on 05/01/18 12:[address] Late Entry 05/01/18 @ 0950 Patient Name: JAYLA SIBLEY Admission Status: Elective Accout number: [id number] Admission Date: 04-29-2018 : 1970 Admission Diagnosis:STRICTURE OF ARTERY Attending: YIFAN FRANCO Current LOS: 2 Anticipated DC Date: Planned Disposition: Home Primary Insurance: WE[employer] MEDICARE ADV Discharge Planning Comments: CM met with patient at bedside after obtaining verbal consent. Patient states he plans on returning home after discharge with his mother. Patient states he will have family transport him home via private vehicle. Patient denies any discharge needs at this time. CM will continue to follow and assist as needed for discharge planning / needs. Sports Medicine Physician: Angelia Houser DCPIA - Discharge Planning Initial Assessment Updated by [email or web address]: Angelia Houser on 05/01/18 1:49 pm * Is the patient Alert and Oriented? Yes * How many steps to enter\exit or inside your home? 6-7 * PCP [facility] * [facility] * Preadmission Environment Home with Family * ADLs Independent * Equipment Rolling Walker * List name and contact numbers for known caregivers / representatives who currently or will assist patient after discharge: Michelle Maradiaga - Mother - [phone] * Verbal permission to speak to the caregivers and representatives has been obtained from the patient. N/A * Community resources currently utilized None * Additional services required to return to the preadmission environment? No * Can the patient safely return to the preadmission environment? Yes * Has this patient been hospitalized within the prior 30 days at any hospital? No Coverage Notice Reviewer: [id number] Collette Houser Notice Issued Date-Time: 05/03/2018 11:52 Notice Type: IM Discharge Notice Notice Delivered To: Patient Relationship to Patient: Self Director Call Center Sales Name: Delivery Method: HAND - Hand Delivered Janeth Days: Prior Verbal Notification: Recipient Understood Notice: Yes Recipient Signature: Yes Med Rec Note Co-signed by Attending: Coverage Notice Comment: Last DP export: 05/01/18 12:52 p Patient Name: JAYLA SIBLEY Page 81981 at 1550 All edits/amendments must be made on the electronic document DICTATION DATE: 05/03/181548 IT SALES REPRESENTATIVE: ILDEFONSO 05/03/18 1549 RPT#: [id number] DC DATE:05/03/18 STATUS: DIS IN [facility] [address] [place] [address] END OF REPORT
--- NOTE | ~2018-04-29 | OP ---
PATIENT NAME: JAYLA SIBLEY MEDICAL RECORD: [id number] :[birth year] LOCATION:D.[facility] D.[facility] ADMISSION DATE:04/29/18 SURGEON: ARI FRANCO MD DATE OF OPERATION: 04/30/2018 SURGEON: Ari Franco MD BOAT DETAILER: JAYLON [place] PREOPERATIVE DIAGNOSIS: Graft thrombosis, status post femoral-tibial bypass for complications of traumatic superficial femoral artery injury and occlusion with previous revascularization. POSTOPERATIVE DIAGNOSIS: Graft thrombosis, status post femoral-tibial bypass for complications of traumatic superficial femoral artery injury and occlusion with previous revascularization. PROCEDURES: 1. Graft thrombectomy. 2. Intraoperative arteriogram times 2. ANESTHESIA: General endotracheal anesthesia. ESTIMATED BLOOD LOSS: 250 cc. COMPLICATIONS: None. SPECIMENS: None. CONDITION: Stable. DISPOSITION: Recovery room in CV ICU. OPERATIVE FINDINGS: 1. Relatively fresh thrombus with good resultant inflow and backflow. 2. Arteriogram revealed good inflow to the anterior tibial, which had some spasm in the mid vessel, but Doppler signal down to the dorsalis pedis. OPERATIVE INDICATION: Recurrent foot ischemia approximately 3 weeks after femoral-tibial bypass. PROCEDURE IN DETAIL: The patient was brought to the operative suite. General anesthesia was obtained. Leg was sterilely prepped and draped. An incision was made over the distal one-third of the graft just above the knee and the graft was exposed. The graft was opened and inflow was restored using a #5 Chris catheter. Additional heparin was given. Then, using a #4 Chris catheter, several passes of the thrombectomy catheter removed the thrombus and then a #5 catheter passed without inflation very easily to the level of the ankle. The arteriotomy was then closed and a separate stab wound using a 14-gauge angiocatheter was performed. Inflow was clamped and 2 arteriograms were performed, revealing good flow into the anterior tibial, filling into the collateral vessels. The opening was then closed and flow restored. Good Doppler signal noted and hemostasis was ensured. Antibiotic irrigation was performed. Surgicel was placed over the wound and then wound was closed in 2 layers. The patient was taken to recovery room stable with Doppler dorsalis OPERATIVE REPORT [id number] JAYLA SIBLEY pedis and at this point Doppler posterior tibial pulse. TRANSINT:[id number] Voice Confirmation ID: [id number] DOCUMENT ID: [id number] ARI FRANCO MD at 0746 CC: [id number] DICTATION DATE: 04/30/18 1451 ELECTRICIAN THIRD: 04/30/18 1635 ADM IN [place] [id number] [place] [id number]
--- NOTE | ~2018-04-29 | MORECARE ---
CASE MANAGEMENT DISCHARGE SUMMARY PATIENT: JAYLA SIBLEY UNIT: [id number] ADM DATE: 04/29/18 AGE: 47 : 66 SEX: M ROOM/BED: D.[facility] AUTHOR: HOSEA,DOC PHYSICIAN: REFERRING PHYSICIAN: YIFAN FRANCO MD DATE OF SERVICE: 05/01/18 Discharge Plan Patient Name: JAYLA SIBLEY Facility: [facility]:[place] : 1970 Planned Disposition: Home Anticipated Discharge Date: Discharge Date: Expected LOS: Initial Reviewer: [email or web address] Initial Review Date: 05/01/2018 Generated: 05/01/18 2:52 pm Comments DCP- Discharge Planning Updated by [email or web address]: Angelia Houser on 05/01/18 12:[address] Late Entry 05/01/18 @ 0950 Patient Name: JAYLA SIBLEY Admission Status: Elective Accout number: [id number] Admission Date: 04-29-2018 : 1970 Admission Diagnosis:STRICTURE OF ARTERY Attending: YIFAN FRANCO Current LOS: 2 Anticipated DC Date: Planned Disposition: Home Primary Insurance: [employer] MEDICARE ADV Discharge Planning Comments: CM met with patient at bedside after obtaining verbal consent. Patient states he plans on returning home after discharge with his mother. Patient states he will have family transport him home via private vehicle. Patient denies any discharge needs at this time. CM will continue to follow and assist as needed for discharge planning / needs. Data Warehouse Developer: Angelia Houser DCPIA - Discharge Planning Initial Assessment Updated by [email or web address]: Angelia Houser on 05/01/18 1:49 pm * Is the patient Alert and Oriented? Yes * How many steps to enter\exit or inside your home? 6-7 * PCP [facility] * [facility] * Preadmission Environment Home with Family * ADLs Independent * Equipment Rolling Walker * List name and contact numbers for known caregivers / representatives who currently or will assist patient after discharge: Michelle Maradiaga - Mother - [phone] * Verbal permission to speak to the caregivers and representatives has been obtained from the patient. N/A * Community resources currently utilized None * Additional services required to return to the preadmission environment? No * Can the patient safely return to the preadmission environment? Yes * Has this patient been hospitalized within the prior 30 days at any hospital? No Patient Name: JAYLA SIBLEY Page 90562 at 1352 All edits/amendments must be made on the electronic document DICTATION DATE: 05/01/18 135 INTEGRATION DIRECTOR: ILDEFONSO 05/01/18 1352 RPT#: [id number] MS DATE: STATUS: ADM IN [facility] [address] [place] [address] END OF REPORT
--- NOTE | ~2018-04-29 | HP ---
PATIENT: JAYLA SIBLEY MEDICAL RECORD: [id number] ACCOUNT: [id number] LOCATION:[facility] : [birth year] ADMISSION DATE: 04/29/18 PCP: YIFAN FRANCO MD HISTORY AND PHYSICAL EXAMINATION JAYLA Rush (47yo, M) ID# [id number]. Date/Time04/24/2018 09:12FQMRD63 1970[facility] ClinicProviderDANINATALEE FRANCO MDInsuranceMed Primary: WELLCARE (MEDICARE REPLACEMENT/ADVANTAGE - HMO) Insurance # : [id number] Employer Name : DISABLED Med Secondary: [place]) Insurance # : [id number] Employer Name : N/A Prescription: CMX - Member is eligible. Prescription: [facility] MEDICAID ADMINISTRATION - Member is eligible. Chief Complaint Post op s/p R femoral to tibial bypass with ptfe graft 04/11/18 two week post op visit Patient's Care Team Primary Care Provider: LUPIS LYNCH MD: [address] [address], , Patient's Pharmacies [facility] ([facility]): [address] [facility] [address], , Vitals BP:127/78 sitting L arm 04/24/2018 10:12 amBP Cuff Size:adult 04/24/2018 10:12 amHR:68,reg 04/24/2018 10:13 amHt:5 ft 9 in 04/24/2018 10:01 amWt:240 lbs 04/24/2018 10:13 amNotes:would like pT, has lots of pain and difficulty putting heel to floor04/24/2018 10:14 amBMI:35.4 04/24/2018 10:13 amAllergies Reviewed Allergies TYLENOLMedications Reviewed Medications amoxicillin 500 mg uajjvru09/13/18 filledCaremarkaspirin 325 mg odycuz92/19/18 filledsurescriptsazithromycin 250 mg /26/18 filledCaremarkcephALEXin 500 mg vbhiksx58/19/18 filledCaremarkclarithromycin 500 mg vtufeu48/13/18 filledCaremarkclopidogrel 75 mg vgmgyk13/10/18 filledCaremarkfamotidine 40 mg xcjynh36/17/18 filledCaremarkgabapentin 300 mg kaossil82/07/18 filledCaremarkHM STOOL SOFTNER CAP 500UR6604/15/18 filledsurescriptsmetoclopramide 5 mg niiasd89/25/18 filledCaremarkomeprazole 40 mg capsule,delayed jcsfyva25/13/18 filledCaremarkoxyCODONE 5 mg yqqlga23/19/18 filledCaremarkpredniSONE 20 mg vednmr75/26/18 filledCaremarksucralfate 1 gram axywjs62/16/18 filledCaremarkvenlafaxine ER 37.5 mg capsule,extended release 24 hr09/04/17 filledCaremarkvenlafaxine ER 75 mg capsule,extended release 24 hr09/25/17 filledCaremarkVentolin HFA 90 mcg/actuation aerosol zzxjevo00/26/18 filledCaremarkProblems Reviewed Problems Peripheral arterial occlusive disease - Onset: 03/22/2018 Cirrhosis of liver Family History Reviewed Family History Father- Alcoholism - Drug abuse - Chronic obstructive lung diseaseMother- Alcoholism HISTORY AND PHYSICAL [id number] JAYLA SIBLEY - Drug abuse - Chronic obstructive lung diseaseSocial History Reviewed Social History Cardiology Family history of heart disease?: N Smoking Status: Current every day smoker Smoker (1 PPD) High Cholesterol: N High blood pressure: N Alcohol intake: None Surgical History Reviewed Surgical History Other - bilateral legs Other - right eye Past Medical History Reviewed Past Medical History Hepatitis: Y - C per history Liver Disease: Y - cirrhosis Documents for Discussion N/A Screening None recorded. HPI Post-Op Visit Reported by patient. Onset/Timing: date of surgery: (04/11/18) Quality: procedure: (fem tib bypass) Associated Symptoms: incision healing well; no fatigue; normal appetite; normal bowel function; no constipation; no nausea; no emesis; pain improving; no fever; no bleeding; no dysuria/urinary symptoms; lower extremity edema/pain; neeru removed. Skin tag noted right groin incision. pt requests pt for help with stretching and mobilizing RLE. Doppler DP pulse, unable to locate PT. some tenderness when walking but no symptoms of claudication, major improvement from preop ROS ROS as noted in the HPI Physical Exam Patient is a 47-year-old male. Doppler right dorsalis pedis pulse Tinder on dorsiflexion of the foot Incisions healing, no further erythema right thigh Assessment / Plan 1. Peripheral arterial occlusive disease I73.9: Peripheral vascular disease, unspecified PERIPHERAL ARTERIAL DISEASE OF THE LEG: CARE INSTRUCTIONS Discussion Notes discussed beginning physical therapy No driving until better able to walk discussed warning signs Return to Office None recorded. HISTORY AND PHYSICAL [id number] JAYLA SIBLEY DANIEL W MD at 1145 CC: [id number] DICTATION DATE: 04/24/18 0950 LOAN CONSULTANT: ILDEFONSO 05/02/18 1230 ADM IN [place] [id number] [place] [address]
[~2018-04-29 14:47] MED LIST changes: +ASPIRIN325 MG PO; +COLACE100 MG PO; +KEFLEX500 MG PO; +oxyCODONE IR PO
[2018-04-29 15:32] LABS: HEMATOCRIT 41.1 % (42.0-54.0); HEMOGLOBIN 13.8 g/dL (13.5-17.5); MCH 31.4 pg (26.0-34.0); MCHC 33.6 g/dL (31.0-37.0); MCV 93.6 fL (80.0-100.0); MEAN PLATELET VOLUME 9.5 fL (7.4-10.4); RBC 4.39 10x6/uL (4.20-6.10); RDW 13.9 % (11.5-14.5); WBC 6.2 10x3/uL (4.8-10.8)
[2018-04-29 15:45] LABS: APTT 28.2 SECONDS (22.8-39.4); INR 0.99 (0.85-1.17); PROTIME 12.6 SECONDS (11.6-15.0)
[2018-04-29 16:06] LABS: ALBUMIN 3.9 g/dL (3.4-5.0); ANION GAP 12.7 mmol/L (8-16); BILIRUBIN - TOTAL 0.59 mg/dL (0.2-1.3); CARBON DIOXIDE 30.1 mmol/L (21.0-32.0); CREATININE - SERUM 1.2 mg/dL (0.6-1.3); POTASSIUM - SERUM 4.8 mmol/L (3.5-5.1); PROTEIN - SERUM 7.7 g/dL (6.4-8.2)
[2018-04-29] MEDS ORDERED: PLAVIX75 MG PO (16:20)
[2018-04-29] MEDS ORDERED: HYDROCODON-ACE1 EAC7 PO (16:21)
[2018-04-29] MEDS ORDERED: NAPROSYN500 MG PO (16:25)
[2018-04-29 17:47] VITALS: BP 155/84; BMI 32.4
[2018-04-29 21:04] VITALS: BP 104/63
[2018-04-29 22:21] LABS: APPEARANCE CLEAR (CLEAR); COLOR YELLOW (YELLOW)
[2018-04-29 22:22] LABS: BILIRUBIN NEGATIVE (NEGATIVE); GLUCOSE NEGATIVE (NEGATIVE); KETONE NEGATIVE (NEGATIVE); NITRITE NEGATIVE (NEGATIVE); PROTEIN NEGATIVE (NEGATIVE); UROBILINOGEN NORMAL (NORMAL)
[2018-04-30] VITALS (18 sets, daily range): BP systolic 87–117; BP diastolic 47–73; Ht 180.3 cm; Wt 106.7 kg
[2018-04-30 05:59] LABS: BASOPHILS 0.5 % (0-2); EOSINOPHILS 5.3 % (0-7); HEMATOCRIT 40.8 % (42.0-54.0); HEMOGLOBIN 13.8 g/dL (13.5-17.5); IMMATURE GRANULOCYTES 0.2 % (0-5); LYMPHOCYTES 42.7 % (15-50); MCH 31.5 pg (26.0-34.0); MCHC 33.8 g/dL (31.0-37.0); MCV 93.2 fL (80.0-100.0); MEAN PLATELET VOLUME 9.8 fL (7.4-10.4); MONOCYTES 6.1 % (2-11); NEUTROPHILS 45.2 % (40-80); PLATELET COUNT 267 10x3/uL (130-400); RBC 4.38 10x6/uL (4.20-6.10); RDW 13.9 % (11.5-14.5); WBC 6.4 10x3/uL (4.8-10.8)
[2018-04-30 06:39] LABS: CALCIUM 8.7 mg/dL (8.5-10.1); CARBON DIOXIDE 26.7 mmol/L (21.0-32.0); CHLORIDE - SERUM 104 mmol/L (98-107); CREATININE - SERUM 1.1 mg/dL (0.6-1.3); GLUCOSE 94 mg/dL (74-106); SODIUM 141 mmol/L (136-145); eGFR NON AFRICAN AMERICAN 75 mL/min (90-120)
[2018-04-30 06:40] LABS: CALC OSMOLALITY 282 mosm/kg (275-300); POTASSIUM - SERUM 3.8 mmol/L (3.5-5.1); UREA NITROGEN 17 mg/dL (7-18)
[2018-04-30 15:13] LABS: PLT FUNCT.(P2Y12) PLAVIX 285 PRU (194-418)
[2018-05-01] VITALS (24 sets, daily range): BP systolic 90–125; BP diastolic 44–90
[2018-05-01 00:55] LABS: MCH 30.8 pg (26.0-34.0); MCHC 32.7 g/dL (31.0-37.0); MCV 94.1 fL (80.0-100.0); MEAN PLATELET VOLUME 9.3 fL (7.4-10.4); RDW 13.8 % (11.5-14.5); WBC 5.1 10x3/uL (4.8-10.8)
[2018-05-01 00:56] LABS: RBC 3.38 10x6/uL (4.20-6.10)
[2018-05-01 00:57] LABS: HEMATOCRIT 31.8 % (42.0-54.0); HEMOGLOBIN 10.4 g/dL (13.5-17.5)
[2018-05-01 04:18] LABS: HEMATOCRIT 35.4 % (42.0-54.0); HEMOGLOBIN 11.8 g/dL (13.5-17.5); MCH 31.4 pg (26.0-34.0); MCHC 33.3 g/dL (31.0-37.0); MCV 94.1 fL (80.0-100.0); MEAN PLATELET VOLUME 9.3 fL (7.4-10.4); RBC 3.76 10x6/uL (4.20-6.10); WBC 5.5 10x3/uL (4.8-10.8)
[2018-05-01 04:28] LABS: INR 1.08 (0.85-1.17); PROTIME 13.5 SECONDS (11.6-15.0)
[2018-05-01 04:29] LABS: APTT 46.5 SECONDS (22.8-39.4)
[2018-05-01 04:42] LABS: ALBUMIN 3.2 g/dL (3.4-5.0); ANION GAP 11.6 mmol/L (8-16); BILIRUBIN - TOTAL 0.66 mg/dL (0.2-1.3); CALCIUM 8.1 mg/dL (8.5-10.1); CARBON DIOXIDE 29.8 mmol/L (21.0-32.0); CREATININE - SERUM 1.2 mg/dL (0.6-1.3); POTASSIUM - SERUM 3.4 mmol/L (3.5-5.1); PROTEIN - SERUM 7.1 g/dL (6.4-8.2)
[2018-05-02] VITALS (20 sets, daily range): BP systolic 89–135; BP diastolic 45–81
[2018-05-02 01:21] LABS: HEMATOCRIT 34.4 % (42.0-54.0); HEMOGLOBIN 11.6 g/dL (13.5-17.5); MCH 31.4 pg (26.0-34.0); MCHC 33.7 g/dL (31.0-37.0); MEAN PLATELET VOLUME 9.2 fL (7.4-10.4); RBC 3.7 10x6/uL (4.20-6.10); RDW 13.6 % (11.5-14.5)
[2018-05-02 04:27] LABS: INR 1.05 (0.85-1.17); PROTIME 13.2 SECONDS (11.6-15.0)
[2018-05-02 04:28] LABS: APTT 67.3 SECONDS (22.8-39.4)
[2018-05-03] VITALS (12 sets, daily range): BP systolic 95–133; BP diastolic 38–74
[2018-05-03 01:04] LABS: HEMATOCRIT 33.8 % (42.0-54.0); HEMOGLOBIN 11.3 g/dL (13.5-17.5); MCH 30.9 pg (26.0-34.0); MCHC 33.4 g/dL (31.0-37.0); MCV 92.3 fL (80.0-100.0); MEAN PLATELET VOLUME 9.8 fL (7.4-10.4); RBC 3.66 10x6/uL (4.20-6.10); RDW 13.5 % (11.5-14.5); WBC 4.4 10x3/uL (4.8-10.8)
[2018-05-03 07:17] LABS: INR 1.21 (0.85-1.17); PROTIME 14.8 SECONDS (11.6-15.0)
[2018-05-03] MEDS ORDERED: COUMADIN7.5 MG PO (11:41)
[2018-05-03] MEDS ORDERED: ASPIRIN EC81 M1 PO (11:42)
== END 2018-05-03 13:40 | disposition home or self-care (01) | DRG 254 ==
LOC: D.CVICU 14:47 → D.M2 14:47 → D.CVICU 04-30 11:32
PROVIDERS: Internal Medicine Cardiovascular Disease; Thoracic Surgery (Cardiothoracic Vascular Surgery)
PROC: B41F1ZZ Fluoroscopy of Right Lower Extremity Arteries using Low Osmolar Contrast (ICD-10-PCS; 2018-04-30)
PROC: 04CK0ZZ Extirpation of Matter from Right Femoral Artery, Open Approach (ICD-10-PCS; principal; 2018-04-30 11:15)
DX: T82.868A Thrombosis due to vascular prosthetic devices, implants and grafts, initial encounter (principal); Y83.8 Other surgical procedures as the cause of abnormal reaction of the patient, or of later complication, without mention of misadventure at the time of the procedure; K21.9 Gastro-esophageal reflux disease without esophagitis; K75.9 Inflammatory liver disease, unspecified; K74.60 Unspecified cirrhosis of liver; F17.200 Nicotine dependence, unspecified, uncomplicated; J44.9 Chronic obstructive pulmonary disease, unspecified; Z86.19 Personal history of other infectious and parasitic diseases

== ENCOUNTER → 2018-05-06 07:35 | Outpatient (CLI) | payer MEDICARE, MEDICAID ==
[2018-04-30 12:20] VITALS: BMI 32.2
[~2018-05-06 07:35] MED LIST changes: +ASPIRIN EC81 M1 PO; +COUMADIN7.5 MG PO; +HYDROCODON-ACE1 EAC7 PO; +NAPROSYN500 MG PO
[2018-05-06 08:18] LABS: INR 1.32 (0.85-1.17); PROTIME 15.8 SECONDS (11.6-15.0)
== END | disposition home or self-care (01) ==
LOC: D.LAB 07:35
PROVIDERS: Thoracic Surgery (Cardiothoracic Vascular Surgery)
DX: Z51.81 Encounter for therapeutic drug level monitoring (principal); Z79.01 Long term (current) use of anticoagulants

== ENCOUNTER 2018-05-08 15:43 | Inpatient (IN) | payer MEDICARE, MEDICAID ==
[~2018-05-08] VITALS: Ht 180.3 cm; Wt 106.4 kg
--- NOTE | ~2018-05-08 | MORECARE ---
CASE MANAGEMENT DISCHARGE SUMMARY PATIENT: JAYLA SIBLEY UNIT: [id number] ADM DATE: 05/08/18 AGE: 47 : 66 SEX: M ROOM/BED: D.2203 AUTHOR: CYNTHIA JC PHYSICIAN: REFERRING PHYSICIAN: YIFAN FRANCO MD DATE OF SERVICE: 05/09/18 Discharge Plan Patient Name: JAYLA SIBLEY Facility: [facility]:[place] : 1970 Planned Disposition: Home Anticipated Discharge Date: Discharge Date: Expected LOS: Initial Reviewer: [email or web address] Initial Review Date: 05/08/2018 Generated: 05/09/18 5:02 pm Comments DCP- Discharge Planning Updated by [email or web address]: Janie Stone on 05/09/18 3:[address] Patient Name: JAYLA SIBLEY Admission Status: Urgent Accout number: [id number] Admission Date: 05-08-2018 : 1970 Admission Diagnosis:POSTPROC HEMATOMA OF SKIN, SUBCU FOLLOWING OTHER PROCED Attending: YIFAN FRANCO Current LOS: 1 Anticipated DC Date: Planned Disposition: Home Primary Insurance: WELLCARE MEDICARE ADV Discharge Planning Comments: CM MET WITH PATIENT TO ASSESS DISCHARGE PLANNING NEEDS. PATIENT LIVES WITH HIS MOTHER WHERE HE PLANS TO RETURN AT DISCHARGE. HE STATED THAT EITHER HIS MOTHER OR SON WILL BE THE ONE TO DRIVE HIM HOME. HE DENIES ANY DME OR HH NEEDS. THERE ARE 8 STEPS TO ENTER HIS HOME. CM WILL CONTINUE TO FOLLOW AND ASSIST WITH DC PLANNING NEEDED Hat Lining Paster: Janie Stone DCPIA - Discharge Planning Initial Assessment Updated by [email or web address]: Janie Stone on 05/09/18 3:57 pm * Is the patient Alert and Oriented? Yes * How many steps to enter\exit or inside your home? * PCP bollen * Pharmacy alisa * Preadmission Environment Home with Family * ADLs Independent * Equipment Walker * List name and contact numbers for known caregivers / representatives who currently or will assist patient after discharge: Michelle [phone] * Verbal permission to speak to the caregivers and representatives has been obtained from the patient. N/A * Community resources currently utilized None * Additional services required to return to the preadmission environment? No * Can the patient safely return to the preadmission environment? Yes * Has this patient been hospitalized within the prior 30 days at any hospital? Yes Patient Name: JAYLA SIBLEY Page 15348 at 1602 All edits/amendments must be made on the electronic document DICTATION DATE: 05/09/181600 AUTO SLIP COVER INSTALLER: ILDEFONSO 05/09/181600 RPT#: [id number] DC DATE: STATUS: ADM IN [facility] [address] [place] [address] END OF REPORT
--- NOTE | ~2018-05-08 | HEMODYNAMI ---
PATIENT:JAYLA SIBLEY MEDICAL RECORD: [id number] : 66 LOCATION:[facility] D.2309 ADMISSION DATE: 05/08/18 Generatedon:05/13/201812:31 Patient name: JAYLA SIBLEY Patient #: [id number] SSN: : 1970 Date of study: 05/13/2018 Page: Of Hemodynamic Procedure Report Patient Data Patient Demographics Procedure consent was obtained First Name: JAYLA Gender: Male Last Name: TOÑITO : 1970 [facility] Initial: C Age: 47 year(s) Patient #: [id number] Race: Unknown Additional ID: [id number] Contact details [address]: [address] [place] [address] State: [place] City: [place] Zip code: [address] Past Medical History Allergies Allergen Reaction Date Comments Reported Acetaminophen 03/21/2018 Other allergy 05/13/2018 TYLENOL Admission Admission Data Admission Date: 05/08/2018 Admission Time: 15:43 Room #: [facility] Procedure Procedure Types Cath Procedure Peripheral Cath Diagnostic Procedure Abd/Extremity Extremities Procedure Description Procedure Date Procedure Date: 05/13/2018 Procedure Start Time: 10:20 Procedure Staff Name Function Pedro Trejo MD Performing Physician Manuel Chaves RT Monitor Jossy Clayton Scrub Mercedes Hood RN Nurse Procedure Data Cath Procedure Fluoroscopy Diagnostic fluoroscopy Total fluoroscopy dose: 255 dose: 255 mGy mGy Contrast Material Contrast Material Type Amount (ml) Isovue 300 100 Entry Location Entry Primary Successful Side Size Upsize Upsize Entry Closure Succes sful Closure Location (Fr) 1 (Fr) 2 (Fr) Remarks Device Remarks Femoral Right 5 Fr 6 Fr Mynx artery Short Pile Header 6Fr/7Fr Diagnostic catheters Device Type Used For End Catheter Placement DIAGNOSTIC IMT 5Fr Catheter ([id number]) Procedure Medications Medication Administration Route Dosage Heparin Flush Bag added to field 3 bags (1000units/500ml NS) Lidocaine 1% added to field 20 Versed I.V. 2 mg Fentanyl I.V. 100 mcg Heparin Bolus I.V. 5000 units Versed I.V. 1 mg Fentanyl I.V. 50 mcg Heparin Bolus I.V. 2000 units Versed I.V. 1 mg Fentanyl I.V. 50 mcg Hemodynamics Rest Heart Rate: 54 (bpm) Snapshots Pre Cath Intra NCS Post Cath Vital Signs Time Heart Resp SPO2 etCO2 NIBP (mmHg) Rhythm Pain Sedation Rate (ipm) (%) (mmHg) Status Level (bpm) 10:05:52 53 16 99 0 Measuring NSR 0 (11) 10(A) , No pain 10:06:06 50 14 99 0 106/64(69) NSR 0 (11) 10(A) , No pain 10:11:05 55 12 100 41.7 Measuring NSR 0 (11) 10(A) , No pain 10:12:29 55 12 100 32.6 Time NSR 0 (11) 10(A) Exceeded , No pain 10:17:28 56 13 100 23.5 Measuring NSR 0 (11) 9(A) , No pain 10:18:42 55 16 100 29.5 Aborted NSR 0 (11) 9(A) , No pain 10:20:55 53 18 100 28.8 165/87(100) NSR 0 (11) 9(A) , No pain 10:25:21 52 49 96 1.5 125/80(95) NSR 0 (11) 8(A) , No pain 10:29:44 51 52 99 43.2 138/72(103) NSR 0 (11) 8(A) , No pain 10:34:12 51 16 99 37.1 134/77(108) NSR 0 (11) 8(A) , No pain 10:37:43 54 16 99 31.8 134/77(108) NSR 0 (11) 8(A) , No pain 10:42:07 52 9 100 42.4 140/79(109) NSR 0 (11) 8(A) , No pain 10:46:36 54 9 100 46.2 138/87(99) NSR 0 (11) 8(A) , No pain 10:51:00 53 14 100 43.2 143/85(112) NSR 0 (11) 8(A) , No pain 10:55:26 52 19 99 40.1 134/76(94) NSR 0 (11) 8(A) , No pain 10:59:42 54 10 99 31 122/80(89) NSR 0 (11) 8(A) , No pain 11:03:58 50 12 100 41.6 135/79(107) NSR 0 (11) 8(A) , No pain 11:08:20 52 17 99 43.9 130/82(100) NSR 0 (11) 8(A) , No pain 11:12:40 54 12 100 38.6 134/73(103) NSR 0 (11) 8(A) , No pain 11:17:37 52 22 99 40.9 133/79(101) NSR 0 (11) 8(A) , No pain 11:21:55 54 14 100 37.9 128/88(96) NSR 0 (11) 8(A) , No pain 11:26:11 52 12 100 37.1 142/88(127) NSR 0 (11) 8(A) , No pain 11:30:36 50 12 100 43.2 147/85(122) NSR 0 (11) 8(A) , No pain 11:35:00 50 11 100 39.4 145/88(110) NSR 0 (11) 8(A) , No pain 11:39:59 52 9 100 36.3 Measuring NSR 0 (11) 8(A) , No pain 11:40:21 48 48 100 39.4 151/85(120) NSR 0 (11) 8(A) , No pain 11:44:40 52 8 99 43.2 134/80(112) NSR 0 (11) 8(A) , No pain 11:48:59 51 20 100 46.1 144/83(105) NSR 0 (11) 8(A) , No pain 11:53:28 54 12 100 40.8 146/74(93) NSR 0 (11) 8(A) , No pain 11:57:54 50 23 100 34.8 143/83(103) NSR 0 (11) 8(A) , No pain 12:02:18 51 9 100 46.9 159/84(125) NSR 0 (11) 8(A) , No pain 12:06:51 52 7 100 40.1 144/83(117) NSR 0 (11) 8(A) , No pain 12:11:13 54 11 100 43.1 146/87(112) NSR 0 (11) 8(A) , No pain 12:15:33 51 13 100 43.2 152/94(143) NSR 0 (11) 8(A) , No pain 12:20:02 56 17 100 29.5 168/82(118) NSR 0 (11) 8(A) , No pain 12:24:42 52 9 100 37.1 163/78(121) NSR 0 (11) 8(A) , No pain 12:29:12 53 16 100 47.7 160/91(129) NSR 0 (11) 8(A) , No pain Medications Time Medication Route Dose Verified Delivered Reason Notes Effec tiveness by by 9:59:25 Heparin Flush added 3 Pedro Vasquez used for Bag to bags Neil Trejo procedure (1000units/500ml field MD FLORES NS) 9:59:36 Lidocaine 1% added 20ml Pedro Vasquez used for to vial Neil Trejo procedure field MD FLORES 10:21:38 Versed I.V. 2 mg Pedro Long for Neil Hood RN sedation 10:21:48 Fentanyl I.V. 100 Pedro Mercedes for mcg Neil Hood RN sedation 10:33:07 Heparin Bolus I.V. 5000 Pedro Mercedes units Neil Hood RN, MD 10:48:34 Versed I.V. 1 mg Pedro Mercedes for Neil Hood RN sedation 10:48:43 Fentanyl I.V. 50 Pedro Mercedes for mcg Neil Hood RN sedation 11:18:42 Heparin Bolus I.V. 2000 Pedro Mercedes units Neil Hood RN, MD 11:41:35 Versed I.V. 1 mg Pedro Mercedes for Neil Hood RN sedation 11:41:42 Fentanyl I.V. 50 Pedro Mercedes for mcg Neil Aguayor RN sedation Procedure Log Time Note 9:46:03 Manuel Chaves RT (R) (CV) sent for patient. Start room use. 9:46:21 Time tracking: Regular hours (M-F 7:00 - 5:00) 9:46:26 Plan of Care:Hemodynamics will remain stable., Cardiac rhythm will remain stable., Comfort level will be maintained., Respiratory function will remain adequate., Patient/ family verbilizes understanding of procedure., Procedure tolerated without complication., Recovers from procedure without complications.. 9:46:32 Patient received from ICU to IR Alert and oriented. Tansferred to table in Supine position. 9:46:33 Correct patient and procedure confirmed by team. 9:46:36 Signed procedure consent form obtained from patient. 9:46:37 Full Disclosure recording started 9:46:40 ECG and BP/O2 sat monitors applied to patient. 9:46:41 - 9:46:45 H&P Date Dictated: 05/13/2018 Within 30 days and on chart.. 9:46:46 Pre-procedure instructions explained to patient. 9:46:47 Pre-op teaching completed and patient verbalized understanding. 9:46:49 Family unavailable. 9:46:51 Patient NPO since Midnight. 9:47:07 Patient allergic to Other allergyTYLENOL 9:47:12 Is the patient allergic to Iodine/contrast media? No. 9:47:14 Is patient on blood thinner?Yes 9:47:17 ACC The patient was administered the following blood thiners within the last 24 hours: ACCPlavix 9:47:20 Patient diabetic? No. 9:47:21 - 9:47:22 ----Pre-sedation anethsthesia assessment.---- 9:47:25 Previous problem with sedation/anesthesia? No ? 9:47:26 Snore? Yes 9:47:28 Sleep apnea? No 9:47:30 Deviated septum? No 9:47:31 Opens mouth fully? Yes 9:47:32 Sticks out tongue? Yes 9:47:35 Airway obstruction? No ? 9:47:39 Dentures? No ? 9:47:45 Pre procedure: right dorsailis pedis pulse Doppler 9:47:48 Pre procedure: left dorsailis pedis pulse Doppler 9:47:51 Pre procedure: right posterior tibial pulse Doppler 9:47:54 Pre procedure: left posterior tibial pulse Doppler 9:47:59 Patient pain scale 0/10 NO PAIN. 9:48:09 IV patent on arrival in left wrist with 0.9% NaCl at [facility]. 9:48:14 Left groin area was prepped with chlora-prep and draped in sterile fashion 9:48:18 Use device set IR Diagnostic 9:48:20 ACIST Syringe (74240) opened to sterile field. 9:48:21 ACIST Hand Control (18758) opened to sterile field. 9:48:21 ACIST Manifold (81925) opened to sterile field. 9:48:21 Bag Decanter (2002S) opened to sterile field. 9:48:22 Sterile Angiographic Pack opened to sterile field. 9:48:22 Tegaderm 4 x 4 (1626W) opened to sterile field. 9:48:39 Alarms reviewed by R. N. 9:48:40 Sharps counted by scrub and verified by R.N. 9:59:25 Heparin Flush Bag (1000units/500ml NS) 3 bags added to field was administered by Pedro Trejo MD; used for procedure; 9:59:36 Lidocaine 1% 20ml vial added to field was administered by Pedro chen MD; used for procedure; 10:04:02 Vital chart was started 10:04:03 Baseline sample Acquired. 10:16:53 Physician arrived 10:16:54 --------ALL STOP TIME OUT------ 10:16:55 Final Timeout: patient, procedure, and site verified with staff and physician. All members of the team are in agreement. 10:16:57 Left groin site verified by team. 10:17:02 Sedation plan: IV Moderate Sedation Medication:Versed, Fentanyl 10:20:01 Procedure started. 10:20:06 Local anesthetic to left femerol artery with Lidocaine 1% by Pedro Trejo MD.INITIAL ACCESS ONLY 10:20:07 Access obtained with 4Fr micropunture. 10:20:17 A 5 Fr sheath was inserted into the Right Femoral artery 10:20:22 SHEATH 5FR [place] (FLJ528) opened to sterile field. 10:20:22 Micropuncture VSI 4FR kit opened to sterile field. 10:20:23 BENTSON 145cm wire (D96530) opened to sterile field. 10:20:23 TUBING Contrast Injection High Pressure (IOQ143V) opened to sterile field. 10:20:26 A DIAGNOSTIC IMT 5Fr Catheter ([id number]) was advanced over the wire an d used for . 10:21:38 Versed 2 mg I.V. was administered by Mercedes Hood RN; for sedation; 10:21:48 Fentanyl 100 mcg I.V. was administered by Mercedes Hood RN; for sedation; 10:32:17 GLIDE WIRE ANGLE 180cm (GH4791) opened to sterile field. 10:33:07 Heparin Bolus 5000 units I.V. was administered by Mercedes Hood RN; ; 10:39:43 ROADRUNNER .035 260 glide wire (Q75814) opened to sterile field. 10:39:44 CXI SUPPORT .035 135 CM STR catheter (E07799) opened to sterile field. 10:39:45 GLIDE WIRE .038 180cm ANGLED (PQ0734) opened to sterile field. 10:40:39 OSBORN 260 wire (U96954) opened to sterile field. 10:41:02 SHEATH 6FR Destination (RSR01) opened to sterile field. 10:41:15 Sheath upsized to a 6 Fr Short. 10:48:34 Versed 1 mg I.V. was administered by Mercedes Hood RN; for sedation; 10:48:43 Fentanyl 50 mcg I.V. was administered by Mercedes Hood RN; for sedation ; 10:48:57 CHOICE PT Extra Support J 300cm guide wire ([id number]) opened to steril e field. 10:49:36 COPILOT Valve Control (0830763) opened to sterile field. 10:54:29 INFLATOR BasixTOUCH (FO7541) opened to sterile field. 10:58:51 Inflate balloon Inflation number: 1 A CHOCOLATE 3.0 x 40 x 150 balloon ([id number]) was prepped and advanced across the Undefined1, then inflated to 9 NESHA for 2:02 (min:sec). 11:09:40 Indigo System Aspiration Catheter 8 opened to sterile field. 11:09:41 Indigo System Separator 6 opened to sterile field. 11:18:42 Heparin Bolus 2000 units I.V. was administered by Mercedes Hood RN; ; 11:20:[address] ST[address]-Way Male Rotating (X90545) opened to sterile field. 11:21:58 EXPORT 6Fr Aspiration Catheter (EXPORTXT) opened to sterile field. 11:41:35 Versed 1 mg I.V. was administered by Mercedes Hood RN; for sedation; 11:41:42 Fentanyl 50 mcg I.V. was administered by Mercedes Hood RN; for sedation ; 11:48:48 Indigo System Aspiration Catheter 6 opened to sterile field. 11:55:00 Inflate balloon Inflation number: 2 A CHOCOLATE 2.5 x 120 x 150 balloon ([id number]) was prepped and advanced across the Undefined1, then inflated to 9 NESHA for 1:04 (min:sec). 12:03:48 Indigo System Separator 6 opened to sterile field. 12:12:55 SHEATH 6FR [place] (RAT358) opened to sterile field. 12:19:32 MYNX ELECTRIC MELT OPERATOR 6FR/7FR (WW7880) opened to sterile field. 12:19:56 Sheath removed intact; hemostasis achieved with Mynx Pile Header 6Fr/7Fr to th e Right Femoral artery. 12:20:01 Procedure ended.(Physican Out) 12:20:53 Flurop Dose total: 255 12:20:53 Fluoroscopy dose: 255 mGy 12:20:55 Sharps counted by scrub and verified by R.N. 12:23:03 Insertion/operative site no bleeding no hematoma. 12:23:07 Post-op/insertion site Left Femoral artery dressed using a 4 x 4 and Tegaderm. 12:23:14 Post left femerol artery:stable 12:23:19 Post Procedure Pulses reassessed and unchanged 12:23:20 Post procedure instruction explained to patient.Patient verbalizes understanding. 12:23:22 Procedure and supply charges have been captured, reviewed, submitted an d are correct. 12:24:24 RIGHT DP PAPATED 12:28:25 Contrast amount:Isovue 300 100ml. 12:30:27 Report given to ICU. 12:30:32 Patient transfered to ICU with Bed. 12:31:15 Vital chart was stopped Intervention Summary Intervention Notes Time ActionType Lesion and Equipment Used Action# Pressure Duration Attributes 10:58:51 Inflate Undefined1 CHOCOLATE 3.0 x 1 9 02:02 balloon 40 x 150 balloon ([id number]) 11:55:00 Inflate Undefined1 CHOCOLATE 2.5 x 2 9 01:04 balloon 120 x 150 balloon ([id number]) Device Usage Item Name Manufacture Quantity Catalog Number Hospital Part Current Minimal Lot# / Charge Number Stock Stock Serial# Code ACIST Syringe Acist 1 41057 554147 742882 565061 20 (34133) [employer] ACIST Hand Acist 1 17712 262382 866712 633577 5 Control (47731) [employer] ACIST Manifold Acist 1 37214 313101 360588 929016 5 (87304) Medical Systems Inc Bag Decanter Microtek 1 2001S 630878 28649 167159 5 (2001S) Medical Inc. Sterile Cardinal 1 [id number] 758966 900621 5 Angiographic Pack Health Tegaderm 4 x 4 3M 1 1626W 275935 711069 676647 5 (1626W) SHEATH 5FR Terumo 1 PMM305 420790 432631 960687 5 [place] (KLZ218) Micropuncture VSI VSI VASCULAR 1 7266V 434974 179103 5 4FR kit SOLUTIONS BENTSON 145cm [employer] 1 G98548 322990 483598 5 wire (A94960) TUBING Contrast Merit 1 QII344M 843120 475507 830634 5 Injection High Medical Pressure (VYM586U) DIAGNOSTIC IMT [place] 1 [id number] 014061 290094 93581 5 [id number] 5Fr Catheter Scientific (884465560) GLIDE WIRE ANGLE Terumo 1 RX1970 896510 919831 322111 5 180cm (ZP3679) ROADRUNNER .035 [employer] 1 T58803 000678 549336 915110 5 2390430 260 glide wire (I49416) CXI SUPPORT .035 [employer] 1 B87600 665576 152816 046373 5 8837854 135 CM STR catheter (U04004) GLIDE WIRE .038 Terumo 1 SC0567 830520 500899 5 180cm ANGLED (KC0276) OSBORN 260 wire [facility] 1 D53074 004824 35137 399520 5 3553953 (J10119) SHEATH 6FR Terumo 1 RSR01 386328 27450 800928 5 Destination (RSR01) CHOICE PT Extra [place] 1 [id number] 018847 360952 650611 5 [id number] Support J 300cm Scientific guide wire (1823105J2) COPILOT Valve Chance 1 1812094 726414 194370 083054 5 Control (1087113) Vascular INFLATOR Merit 1 MR6924 054534 042594 159199 5 [employer] (TH7331) CHOCOLATE 3.0 x Medtronic 1 IA04-304-28082 347811 605656 838911 5 40 x 150 balloon O ([id number]) TW Indigo System Penumbra 1 [id number] 872390 754111 986268 1 Aspiration Catheter 8 Indigo System Penumbra 2 SEP6 027211 390474 444616 1 Separator 6 STOPCOCK 1-Way [employer] 1 P99217 468524 82615 698692 5 9164805 Male Rotating (E41943) EXPORT 6Fr Medtronic 1 EXPORTXT 672345 149633 552674 0 Aspiration Catheter (EXPORTXT) Indigo System Penumbra 1 CAT6 936224 100506 862691 1 Aspiration Catheter 6 CHOCOLATE 2.5 x Medtronic 1 [id number] 823760 129738 169544 5 120 x 150 balloon O ([id number]) TW SHEATH 6FR Terumo 1 GOI526 757999 334063 147042 40 [place] (KDF133) MYNX ELECTRIC MELT OPERATOR 6FR/7FR Access 1 SQ0871 351466 829224 5 [id number] (OL4758) Closure Signature Audit [place] Stage Time Signature Unsigned Intra-Procedure 05/13/2018 Manuel 12:31:04 PM [place] RT (R) (CV) Signatures Monitor : Manuel Signature : Andie RT Date : Time : [facility] [address] [place] [address]
--- NOTE | ~2018-05-08 | OP ---
PATIENT NAME: JAYLA SIBLEY MEDICAL RECORD: [id number] :66 LOCATION:.[facility] D.[id number] ADMISSION DATE:05/08/18 SURGEON: ARI FRANCO MD DATE OF OPERATION: 05/10/2018 SURGEON: Ari Franco MD REFERRAL SPECIALIST: JAYLON London OPERATIONS PERFORMED. 1. Right femoral tibial graft thrombectomy. 2. Interposition graft placement. 3. Debridement of leg wound. PREOPERATIVE DIAGNOSES: Hematoma, graft thrombosis, leg wound infection. POSTOPERATIVE DIAGNOSES: Hematoma, graft thrombosis, leg wound infection. ANESTHESIA: General endotracheal anesthesia. ESTIMATED BLOOD LOSS: 100 cc. COMPLICATIONS: None. SPECIMENS: Cultures. CONDITION: Stable. DISPOSITION: ICU. OPERATIVE FINDINGS: 1. Hematoma at the previous thrombectomy site with graft occlusion, additional heparin given. Good thrombectomy distally with return of flow and inflow, thrombectomy, due to a thin walled graft a section of regular 6-mm Barnett-Vishal was interposed and there was significant bleeding from all the needle holes. 2. Leg wound debrided locally, no collections of fluid and no devitalized tissue were noted and no further expressible drainage. INDICATION: Graft thrombosis and leg wound drainage. DESCRIPTION OF PROCEDURE: The patient was brought to the operating suite. General anesthesia was obtained. The leg was sterilely prepped and draped. The old thrombectomy incision was opened, irrigated and cultured. The graft was thrombosed. The graft was divided. A section of the graft was removed where the other sutures had been used to close the graft. Distal thrombectomy was performed first. Heparinized saline flushed distally after return of flow, then inflow thrombectomy. Additional intravenous heparin was given. The interposition graft was placed. It was about 2 cm long and sutured with good return of flow. The wound was then irrigated and closed. The lower leg incision was debrided. It was about a cm wide, 0.5 cm deep and 15 cm long. Some old eschar was also removed. A small amount of brown drainage was noted, but there was no deep wound flow and all bits of old Vicryl were removed. The wound was closed with nylons as well as the previous wounds. The patient was stable to CV ICU. OPERATIVE REPORT [id number] JAYLA SIBLEY TRANSINT:[id number] Voice Confirmation ID: [id number] DOCUMENT ID: [id number] ARI FRANCO MD at 1507 CC: [id number] DICTATION DATE: 05/13/18 1356 MEASURING MACHINE TENDER: 05/13/18 1431 ADM IN [place] [id number] [place] [id number]
--- NOTE | ~2018-05-08 | MORECARE ---
CASE MANAGEMENT DISCHARGE SUMMARY PATIENT: JAYLA SIBLEY UNIT: [id number] ADM DATE: 05/08/18 AGE: 47 : 66 SEX: M ROOM/BED: D.0034 AUTHOR: HOSEA,DOC PHYSICIAN: REFERRING PHYSICIAN: YIFAN FRANCO MD DATE OF SERVICE: 05/22/18 Discharge Plan Patient Name: JAYLA SIBLEY Facility: [facility]:[place] : 1970 Planned Disposition: Home with Home Health Anticipated Discharge Date: 05/22/18 Discharge Date: Expected LOS: 14 Initial Reviewer: [email or web address] Initial Review Date: 05/08/2018 Generated: 05/22/18 2:18 pm Comments DCP- Discharge Planning Updated by [email or web address]: Cuong Euceda on 05/22/18 12:[address] Patient Name: JAYLA SIBLEY Encounter No: [id number] : 1970 Primary Insurance: [employer] MEDICARE ADV Anticipated DC Date: 05-22-2018 Planned Disposition: Home with Home Health External Planned Provider: [facility] DCP follow-up note: CM RECEIVED ORDER FOR HOME HEALTH, MET WITH PT IN ROOM TO DISCUSS DISCHARGE PLANNING AND NEEDS. PT REPORTS HE WILL BE DISCHARGING TO HOME OF HIS GRANDPA LOCATED AT [address] [place] [address] IN [facility]. PT PROVIDED PT CELL NUMBER FOR HOME HEALTH CONTACT, . PT REPORTS HE IS DRIVING HIMSELF HOME TODAY HIS TRUCK IS IN THE PARKING LOT. PT WOULD LIKE HOME HEALTH TO PROVIDE PHYSICAL THERAPY IF INSURANCE WILL PAY FOR IT. PT HAS ROLLING WALKER THAT HE OBTAINED FROM A FAMILY MEMBER. PT DENIES FURHTER NEEDS. CHOICE SIGNED FOR NO PROVIDER PREFERNCE FOR HOME HEALTH PROVIDER. IMPORTANT MESSAGE FROM MEDICARE PROVIDED AND EXPLAINED. PT ASKED IF HE CAN HAVE SOME OTHER PAIN PILL FOR HOME USE OTHER THAN THE ONE GIVEN AT HOSPITAL LAST NIGHT IT GAVE HIM NIGHTMARES. CM CALLED [facility], , SPOKE TO HORACIO WHO TOOK REFERRAL FOR ADMIT ON SUNDAY, THE FIRST DAY DRESSING CHANGES ARE DUE AND WILL CONTACT PT'S PRIMARY DOCTOR TO SEE IF THE PCP WILL PROVIDE CONTINUED ORDERS. CM FAXED HOME HEALTH REFERRAL TO [facility] AT [phone]. PT NOTIFIED WHO DENIES FURHTER NEEDS. CM NOTIFIED CAUSTIC OPERATOR NURSE. Cuong Euceda, CASE MANAGEMENT DCP- Discharge Planning Updated by [email or web address]: Camryn Burns on 05/19/18 2:[address] CM RECEIVED CM CONSULT ORDER. WENT TO THE BEDSIDE. PATIENT WAS ASSESSED ON 05/09/18. WILL UPDATE HE HAS WOUND CARE AND A PROVENA. WILL LIKELY HAVE TO CONTACT HIS PCP FOR WOUND [facility] HEALTH MANAGEMENT. PLAN REVISIT. DCP- Discharge Planning Updated by [email or web address]: Janie Stone on 05/09/18 3:[address] Patient Name: JAYLA SIBLEY Admission Status: Urgent Accout number: [id number] Admission Date: 05-08-2018 : 1970 Admission Diagnosis:POSTPROC HEMATOMA OF SKIN, SUBCU FOLLOWING OTHER PROCED Attending: YIFAN FRANCO Current LOS: 1 Anticipated DC Date: Planned Disposition: Home Primary Insurance: [employer] MEDICARE ADV Discharge Planning Comments: CM MET WITH PATIENT TO ASSESS DISCHARGE PLANNING NEEDS. PATIENT LIVES WITH HIS MOTHER WHERE HE PLANS TO RETURN AT DISCHARGE. HE STATED THAT EITHER HIS MOTHER OR SON WILL BE THE ONE TO DRIVE HIM HOME. HE DENIES ANY DME OR HH NEEDS. THERE ARE 8 STEPS TO ENTER HIS HOME. CM WILL CONTINUE TO FOLLOW AND ASSIST WITH DC PLANNING NEEDED Project/Production Manager Imaging: Janie Stone DCPIA - Discharge Planning Initial Assessment Updated by [email or web address]: Janie Stone on 05/09/18 3:57 pm * Is the patient Alert and Oriented? Yes * How many steps to enter\exit or inside your home? * PCP heather * Pharmacy [facility] * Preadmission Environment Home with Family * ADLs Independent * Equipment Walker * List name and contact numbers for known caregivers / representatives who currently or will assist patient after discharge: Michelle [phone] * Verbal permission to speak to the caregivers and representatives has been obtained from the patient. N/A * Community resources currently utilized None * Additional services required to return to the preadmission environment? No * Can the patient safely return to the preadmission environment? Yes * Has this patient been hospitalized within the prior 30 days at any hospital? Yes Coverage Notice Reviewer: [id number] - Cuong Euceda Notice Issued Date-Time: 05/22/2018 12:30 Notice Type: IM Discharge Notice Notice Delivered To: Patient Relationship to Patient: Top Closer Name: Delivery Method: HAND - Hand Delivered Janeth Days: Prior Verbal Notification: Recipient Understood Notice: Yes Recipient Signature: Yes Med Rec Note Co-signed by Attending: Coverage Notice Comment: Reviewer: [id number] - Cuong Ecueda Notice Issued Date-Time: 05/22/2018 12:30 Notice Type: Patient Choice Letter Notice Delivered To: Patient Relationship to Patient: Top Closer Name: Delivery Method: HAND - Hand Delivered Janeth Days: Prior Verbal Notification: Recipient Understood Notice: Yes Recipient Signature: Yes Med Rec Note Co-signed by Attending: Coverage Notice Comment: [facility] Last DP export: 05/22/18 12:05 Patient Name: JAYLA SIBLEY Page [phone] at 1318 All edits/amendments must be made on the electronic document DICTATION DATE: 05/22/188 SETTLEMENT WORKER: ILDEFONSO 05/22/18 1318 RPT#: [id number] [place] DATE: STATUS: ADM IN [facility] [address] [place] [address] END OF REPORT
--- NOTE | ~2018-05-08 | MORECARE ---
CASE MANAGEMENT DISCHARGE SUMMARY PATIENT: JAYLA SIBLEY UNIT: [id number] ADM DATE: 05/08/18 AGE: 47 : 66 SEX: M ROOM/BED: D.3699 AUTHOR: HOSEA,CYNTHIA PHYSICIAN: REFERRING PHYSICIAN: YIFAN FRANCO MD DATE OF SERVICE: 05/22/18 Discharge Plan Patient Name: JAYLA SIBLEY Facility: [facility]:[place] : 1970 Planned Disposition: Home with Home Health Anticipated Discharge Date: 05/22/18 Discharge Date: Expected LOS: 14 Initial Reviewer: [email or web address] Initial Review Date: 05/08/2018 Generated: 05/22/18 1:45 pm Comments DCP- Discharge Planning Updated by [email or web address]: Camryn Burns on 05/19/18 2:[address] CM RECEIVED CM CONSULT ORDER. WENT TO THE BEDSIDE. PATIENT WAS ASSESSED ON 05/09/18. WILL UPDATE HE HAS WOUND CARE AND A PROVENA. WILL LIKELY HAVE TO CONTACT HIS PCP FOR WOUND NURSING HOME HEALTH MANAGEMENT. PLAN REVISIT. DCP- Discharge Planning Updated by [email or web address]: Janie Stone on 05/09/18 3:[address] Patient Name: JAYLA SIBLEY Admission Status: Urgent Accout number: [id number] Admission Date: 05-08-2018 : 1970 Admission Diagnosis:POSTPROC HEMATOMA OF SKIN, SUBCU FOLLOWING OTHER PROCED Attending: YIFAN FRANCO Current LOS: 1 Anticipated DC Date: Planned Disposition: Home Primary Insurance: [employer] MEDICARE ADV Discharge Planning Comments: CM MET WITH PATIENT TO ASSESS DISCHARGE PLANNING NEEDS. PATIENT LIVES WITH HIS MOTHER WHERE HE PLANS TO RETURN AT DISCHARGE. HE STATED THAT EITHER HIS MOTHER OR SON WILL BE THE ONE TO DRIVE HIM HOME. HE DENIES ANY DME OR HH NEEDS. THERE ARE 8 STEPS TO ENTER HIS HOME. CM WILL CONTINUE TO FOLLOW AND ASSIST WITH DC PLANNING NEEDED Rock Dust Sprayer: Janie Stone DCPIA - Discharge Planning Initial Assessment Updated by [email or web address]: Janie Stone on 05/09/18 3:57 pm * Is the patient Alert and Oriented? Yes * How many steps to enter\exit or inside your home? * PCP heather * Pharmacy [facility] * Preadmission Environment Home with Family * ADLs Independent * Equipment Walker * List name and contact numbers for known caregivers / representatives who currently or will assist patient after discharge: Michelle [phone] * Verbal permission to speak to the caregivers and representatives has been obtained from the patient. N/A * Community resources currently utilized None * Additional services required to return to the preadmission environment? No * Can the patient safely return to the preadmission environment? Yes * Has this patient been hospitalized within the prior 30 days at any hospital? Yes Last DP export: 05/19/18 2:56 Patient Name: JAYLA SIBLEY Page [phone] at 1245 All edits/amendments must be made on the electronic document DICTATION DATE: 05/22/181244 TRAINMASTER: ILDEFONSO 05/22/18 1245 RPT#: [id number] DC DATE: STATUS: ADM IN [facility] [address] [place] [address] END OF REPORT
--- NOTE | ~2018-05-08 | MORECARE ---
CASE MANAGEMENT DISCHARGE SUMMARY PATIENT: JAYLA SIBLEY UNIT: [id number] ADM DATE: 05/08/18 AGE: 47 : 66 SEX: M ROOM/BED: D.8452 AUTHOR: HOSEA,CYNTHIA PHYSICIAN: REFERRING PHYSICIAN: YIFAN FRANCO MD DATE OF SERVICE: 05/19/18 Discharge Plan Patient Name: JAYLA SIBLEY Facility: [facility]:[place] : 1970 Planned Disposition: Home Anticipated Discharge Date: Discharge Date: Expected LOS: Initial Reviewer: [email or web address] Initial Review Date: 05/08/2018 Generated: 05/19/18 4:56 pm Comments DCP- Discharge Planning Updated by [email or web address]: Camryn Burns on 05/19/18 2:[address] CM RECEIVED CM CONSULT ORDER. WENT TO THE BEDSIDE. PATIENT WAS ASSESSED ON 05/09/18. WILL UPDATE HE HAS WOUND CARE AND A PROVENA. WILL LIKELY HAVE TO CONTACT HIS PCP FOR WOUND LONG TERM HEALTH MANAGEMENT. PLAN REVISIT. DCP- Discharge Planning Updated by [email or web address]: Janie Stone on 05/09/18 3:[address] Patient Name: JAYLA SIBLEY Admission Status: Urgent Accout number: [id number] Admission Date: 05-08-2018 : 1970 Admission Diagnosis:POSTPROC HEMATOMA OF SKIN, SUBCU FOLLOWING OTHER PROCED Attending: YIFAN FRANCO Current LOS: 1 Anticipated DC Date: Planned Disposition: Home Primary Insurance: [employer] MEDICARE ADV Discharge Planning Comments: CM MET WITH PATIENT TO ASSESS DISCHARGE PLANNING NEEDS. PATIENT LIVES WITH HIS MOTHER WHERE HE PLANS TO RETURN AT DISCHARGE. HE STATED THAT EITHER HIS MOTHER OR SON WILL BE THE ONE TO DRIVE HIM HOME. HE DENIES ANY DME OR HH NEEDS. THERE ARE 8 STEPS TO ENTER HIS HOME. CM WILL CONTINUE TO FOLLOW AND ASSIST WITH DC PLANNING NEEDED Graphic Pre Press Trades Worker: Janie Stone DCPIA - Discharge Planning Initial Assessment Updated by [email or web address]: Janie Stone on 05/09/18 3:57 pm * Is the patient Alert and Oriented? Yes * How many steps to enter\exit or inside your home? * PCP heather * Pharmacy [facility] * Preadmission Environment Home with Family * ADLs Independent * Equipment Walker * List name and contact numbers for known caregivers / representatives who currently or will assist patient after discharge: Michelle [phone] * Verbal permission to speak to the caregivers and representatives has been obtained from the patient. N/A * Community resources currently utilized None * Additional services required to return to the preadmission environment? No * Can the patient safely return to the preadmission environment? Yes * Has this patient been hospitalized within the prior 30 days at any hospital? Yes Last DP export: 05/09/18 3:02 Patient Name: JAYLA SIBLEY Page 43870 at 1556 All edits/amendments must be made on the electronic document DICTATION DATE: 05/19/181554 PERFORMANCE ENGINEER: ILDEFONSO 05/19/181554 RPT#: [id number] DC DATE: STATUS: ADM IN [facility] [address] [place] [address] END OF REPORT
--- NOTE | ~2018-05-08 | MORECARE ---
CASE MANAGEMENT DISCHARGE SUMMARY PATIENT: JAYLA SIBLEY UNIT: [id number] ADM DATE: 05/08/18 AGE: 47 : 66 SEX: M ROOM/BED: D.7502 AUTHOR: HOSEA,CYNTHIA PHYSICIAN: REFERRING PHYSICIAN: YIFAN FRANCO MD DATE OF SERVICE: 05/22/18 Discharge Plan Patient Name: JAYLA SIBLEY Facility: [facility]:[place] : 1970 Planned Disposition: Home with Home Health Anticipated Discharge Date: 05/22/18 Discharge Date: Expected LOS: 14 Initial Reviewer: [email or web address] Initial Review Date: 05/08/2018 Generated: 05/22/18 2:05 pm Comments DCP- Discharge Planning Updated by [email or web address]: Camryn Burns on 05/19/18 2:[address] CM RECEIVED CM CONSULT ORDER. WENT TO THE BEDSIDE. PATIENT WAS ASSESSED ON 05/09/18. WILL UPDATE HE HAS WOUND CARE AND A PROVENA. WILL LIKELY HAVE TO CONTACT HIS PCP FOR WOUND RETIREMENT HEALTH MANAGEMENT. PLAN REVISIT. DCP- Discharge Planning Updated by [email or web address]: Janie Stone on 05/09/18 3:[address] Patient Name: JAYLA SIBLEY Admission Status: Urgent Accout number: [id number] Admission Date: 05-08-2018 : 1970 Admission Diagnosis:POSTPROC HEMATOMA OF SKIN, SUBCU FOLLOWING OTHER PROCED Attending: YIFAN FRANCO Current LOS: 1 Anticipated DC Date: Planned Disposition: Home Primary Insurance: [employer] MED[employer] ADV Discharge Planning Comments: CM MET WITH PATIENT TO ASSESS DISCHARGE PLANNING NEEDS. PATIENT LIVES WITH HIS MOTHER WHERE HE PLANS TO RETURN AT DISCHARGE. HE STATED THAT EITHER HIS MOTHER OR SON WILL BE THE ONE TO DRIVE HIM HOME. HE DENIES ANY DME OR HH NEEDS. THERE ARE 8 STEPS TO ENTER HIS HOME. CM WILL CONTINUE TO FOLLOW AND ASSIST WITH DC PLANNING NEEDED Technician Helper Instrument: Janie Stone DCPIA - Discharge Planning Initial Assessment Updated by [email or web address]: Janie Stone on 05/09/18 3:57 pm * Is the patient Alert and Oriented? Yes * How many steps to enter\exit or inside your home? * PCP heather * Pharmacy [facility] * Preadmission Environment Home with Family * ADLs Independent * Equipment Walker * List name and contact numbers for known caregivers / representatives who currently or will assist patient after discharge: Michelle [phone] * Verbal permission to speak to the caregivers and representatives has been obtained from the patient. N/A * Community resources currently utilized None * Additional services required to return to the preadmission environment? No * Can the patient safely return to the preadmission environment? Yes * Has this patient been hospitalized within the prior 30 days at any hospital? Yes External Providers External Provider: [facility] Next Contact Date: 05/22/2018 Service Request Date: Service Type: Resolution: Reviewer: Comments: Last DP export: 05/22/18 11:45 Patient Name: JAYLA SIBLEY Page [phone] at 1305 All edits/amendments must be made on the electronic document DICTATION DATE: 05/22/18 1304 ACCOUNTING ASSISTANT: ILDEFONSO 05/22/18 1304 RPT#: [id number] DC DATE: STATUS: ADM IN [facility] [address] [place] [address] END OF REPORT
[2018-05-08 17:46] LABS: HEMATOCRIT 38.6 % (42.0-54.0); HEMOGLOBIN 13.2 g/dL (13.5-17.5); MCH 31.5 pg (26.0-34.0); MCHC 34.2 g/dL (31.0-37.0); MCV 92.1 fL (80.0-100.0); RBC 4.19 10x6/uL (4.20-6.10); RDW 13.4 % (11.5-14.5); WBC 6.9 10x3/uL (4.8-10.8)
[2018-05-08 18:20] VITALS: BP 126/74; BMI 31.4
[2018-05-08 18:26] LABS: ALBUMIN 3.7 g/dL (3.4-5.0); ALKALINE PHOSPHATASE 54 U/L (46-116); ALT (SGPT) 139 U/L (10-68); BILIRUBIN - TOTAL 0.73 mg/dL (0.2-1.3); CALC OSMOLALITY 279 mosm/kg (275-300); CALCIUM 8.5 mg/dL (8.5-10.1); CARBON DIOXIDE 27.2 mmol/L (21.0-32.0); CHLORIDE - SERUM 103 mmol/L (98-107); GLUCOSE 93 mg/dL (74-106); POTASSIUM - SERUM 4.3 mmol/L (3.5-5.1); PROTEIN - SERUM 7.4 g/dL (6.4-8.2); SODIUM 139 mmol/L (136-145); UREA NITROGEN 18 mg/dL (7-18); eGFR NON AFRICAN AMERICAN 84 mL/min (90-120)
[2018-05-08 20:00] VITALS: BP 106/54
[2018-05-09] VITALS: BP 111/48
[2018-05-09 04:40] LABS: INR 1.93 (0.85-1.17); PROTIME 21.4 SECONDS (11.6-15.0)
[2018-05-09 05:39] VITALS: BP 114/67
[2018-05-09 09:12] VITALS: BP 105/60
[2018-05-09 10:07] VITALS: BMI 31.3
[2018-05-09 12:58] VITALS: BP 92/62
[2018-05-09 14:02] LABS: PLT FUNCT.(P2Y12) PLAVIX 36 PRU (194-418)
[2018-05-09 15:17] VITALS: BP 116/67
[2018-05-09 15:57] LABS: HEMATOCRIT 36.1 % (42.0-54.0); HEMOGLOBIN 12.4 g/dL (13.5-17.5); MCH 31.6 pg (26.0-34.0); MCHC 34.3 g/dL (31.0-37.0); MCV 92.1 fL (80.0-100.0); MEAN PLATELET VOLUME 10.4 fL (7.4-10.4); RBC 3.92 10x6/uL (4.20-6.10); RDW 13.3 % (11.5-14.5)
[2018-05-09 16:02] LABS: CALC OSMOLALITY 282 mosm/kg (275-300); CALCIUM 8.3 mg/dL (8.5-10.1); CARBON DIOXIDE 25.8 mmol/L (21.0-32.0); CHLORIDE - SERUM 105 mmol/L (98-107); GLUCOSE 120 mg/dL (74-106); POTASSIUM - SERUM 3.9 mmol/L (3.5-5.1); SODIUM 141 mmol/L (136-145); UREA NITROGEN 16 mg/dL (7-18); eGFR NON AFRICAN AMERICAN 84 mL/min (90-120)
[2018-05-09 17:19] LABS: APTT 36.2 SECONDS (22.8-39.4); INR 1.74 (0.85-1.17); PROTIME 19.7 SECONDS (11.6-15.0)
[2018-05-09 19:00] VITALS: BP 109/52
[2018-05-10] VITALS (13 sets, daily range): BP systolic 112–152; BP diastolic 70–89
[2018-05-10 05:11] LABS: INR 1.92 (0.85-1.17); PROTIME 21.3 SECONDS (11.6-15.0)
[2018-05-10 17:02] LABS: HEMATOCRIT 36.2 % (42.0-54.0); HEMOGLOBIN 12.3 g/dL (13.5-17.5)
[2018-05-11] VITALS (24 sets, daily range): BP systolic 103–144; BP diastolic 58–87
[2018-05-11 03:24] LABS: HEMATOCRIT 35.1 % (42.0-54.0); HEMOGLOBIN 11.6 g/dL (13.5-17.5); MCH 30.4 pg (26.0-34.0); MCV 92.1 fL (80.0-100.0); RBC 3.81 10x6/uL (4.20-6.10); RDW 13.1 % (11.5-14.5)
[2018-05-11 03:29] LABS: WBC 6.7 10x3/uL (4.8-10.8)
[2018-05-11 03:34] LABS: INR 1.72 (0.85-1.17); PROTIME 19.5 SECONDS (11.6-15.0)
[2018-05-11 03:55] LABS: ALBUMIN 2.9 g/dL (3.4-5.0); ALKALINE PHOSPHATASE 44 U/L (46-116); ALT (SGPT) 68 U/L (10-68); BILIRUBIN - TOTAL 0.67 mg/dL (0.2-1.3); CALC OSMOLALITY 280 mosm/kg (275-300); CARBON DIOXIDE 26.8 mmol/L (21.0-32.0); CHLORIDE - SERUM 106 mmol/L (98-107); GLUCOSE 122 mg/dL (74-106); POTASSIUM - SERUM 3.7 mmol/L (3.5-5.1); PROTEIN - SERUM 6.6 g/dL (6.4-8.2); SODIUM 141 mmol/L (136-145); eGFR NON AFRICAN AMERICAN 84 mL/min (90-120)
[2018-05-11 04:04] LABS: UREA NITROGEN 10 mg/dL (7-18)
[2018-05-12] VITALS (24 sets, daily range): BP systolic 105–129; BP diastolic 48–83
[2018-05-12 04:49] LABS: INR 1.44 (0.85-1.17)
[2018-05-13] VITALS (22 sets, daily range): BP systolic 115–144; BP diastolic 69–98
[2018-05-13 04:31] LABS: INR 1.2 (0.85-1.17); PROTIME 14.7 SECONDS (11.6-15.0)
[2018-05-13 10:17] LABS: BASOPHILS 0.2 % (0-2); CALC OSMOLALITY 283 mosm/kg (275-300); CALCIUM 8.1 mg/dL (8.5-10.1); CHLORIDE - SERUM 107 mmol/L (98-107); CREATININE - SERUM 0.9 mg/dL (0.6-1.3); EOSINOPHILS 7.8 % (0-7); GLUCOSE 81 mg/dL (74-106); HEMATOCRIT 31.9 % (42.0-54.0); HEMOGLOBIN 10.6 g/dL (13.5-17.5); IMMATURE GRANULOCYTES 0.2 % (0-5); LYMPHOCYTES 42.4 % (15-50); MCH 30.5 pg (26.0-34.0); MCHC 33.2 g/dL (31.0-37.0); MCV 91.9 fL (80.0-100.0); MEAN PLATELET VOLUME 10.1 fL (7.4-10.4); MONOCYTES 6.7 % (2-11); NEUTROPHILS 42.7 % (40-80); PLATELET COUNT 184 10x3/uL (130-400); POTASSIUM - SERUM 3.9 mmol/L (3.5-5.1); RBC 3.47 10x6/uL (4.20-6.10); RDW 13.4 % (11.5-14.5); SODIUM 143 mmol/L (136-145); UREA NITROGEN 12 mg/dL (7-18); WBC 5.2 10x3/uL (4.8-10.8); eGFR NON AFRICAN AMERICAN > 90 mL/min (90-120)
[2018-05-13 14:09] LABS: INR 1.17 (0.85-1.17); PROTIME 14.4 SECONDS (11.6-15.0)
[2018-05-14] VITALS (18 sets, daily range): BP systolic 101–162; BP diastolic 70–95; Ht 180.3 cm; Wt 106.4 kg
[2018-05-14 07:12] LABS: MCH 31.1 pg (26.0-34.0); MCHC 34.5 g/dL (31.0-37.0); MCV 90.1 fL (80.0-100.0); MEAN PLATELET VOLUME 9.3 fL (7.4-10.4); RBC 3.22 10x6/uL (4.20-6.10); RDW 13.1 % (11.5-14.5); WBC 4.9 10x3/uL (4.8-10.8)
[2018-05-14 07:25] LABS: INR 1.17 (0.85-1.17); PROTIME 14.4 SECONDS (11.6-15.0)
[2018-05-14 07:27] LABS: APTT 64.5 SECONDS (22.8-39.4)
[2018-05-14 07:31] LABS: ALBUMIN 2.7 g/dL (3.4-5.0); ALKALINE PHOSPHATASE 44 U/L (46-116); ALT (SGPT) 62 U/L (10-68); BILIRUBIN - TOTAL 0.64 mg/dL (0.2-1.3); CALC OSMOLALITY 276 mosm/kg (275-300); CALCIUM 8.5 mg/dL (8.5-10.1); CARBON DIOXIDE 28.4 mmol/L (21.0-32.0); CHLORIDE - SERUM 105 mmol/L (98-107); GLUCOSE 88 mg/dL (74-106); POTASSIUM - SERUM 3.7 mmol/L (3.5-5.1); SODIUM 140 mmol/L (136-145); UREA NITROGEN 9 mg/dL (7-18); eGFR NON AFRICAN AMERICAN 84 mL/min (90-120)
[2018-05-15 07:00] VITALS: BP 113/62
[2018-05-15 07:21] LABS: HEMATOCRIT 30.9 % (42.0-54.0); HEMOGLOBIN 10.5 g/dL (13.5-17.5); MCH 30.7 pg (26.0-34.0); MCV 90.4 fL (80.0-100.0); MEAN PLATELET VOLUME 9.7 fL (7.4-10.4); RBC 3.42 10x6/uL (4.20-6.10); RDW 13.5 % (11.5-14.5); WBC 4.6 10x3/uL (4.8-10.8)
[2018-05-15 07:28] LABS: CALC OSMOLALITY 280 mosm/kg (275-300); CALCIUM 8.3 mg/dL (8.5-10.1); CARBON DIOXIDE 28.3 mmol/L (21.0-32.0); CHLORIDE - SERUM 105 mmol/L (98-107); CREATININE - SERUM 1.1 mg/dL (0.6-1.3); GLUCOSE 123 mg/dL (74-106); POTASSIUM - SERUM 3.6 mmol/L (3.5-5.1); SODIUM 141 mmol/L (136-145); UREA NITROGEN 11 mg/dL (7-18); eGFR NON AFRICAN AMERICAN 75 mL/min (90-120)
[2018-05-15 07:38] LABS: INR 1.13 (0.85-1.17)
[2018-05-15 07:43] LABS: APTT 82.4 SECONDS (22.8-39.4)
[2018-05-15 16:15] VITALS: BP 138/78
[2018-05-15 20:18] VITALS: BP 139/68
[2018-05-16 00:29] VITALS: BP 131/71
[2018-05-16 04:00] VITALS: BP 104/63
[2018-05-16 05:58] LABS: HEMATOCRIT 28.9 % (42.0-54.0); HEMOGLOBIN 9.7 g/dL (13.5-17.5); MCH 30.5 pg (26.0-34.0); MCHC 33.6 g/dL (31.0-37.0); MCV 90.9 fL (80.0-100.0); RBC 3.18 10x6/uL (4.20-6.10); RDW 13.7 % (11.5-14.5); WBC 4.6 10x3/uL (4.8-10.8)
[2018-05-16 06:13] LABS: CALC OSMOLALITY 287 mosm/kg (275-300); CALCIUM 8.7 mg/dL (8.5-10.1); CARBON DIOXIDE 29.3 mmol/L (21.0-32.0); CHLORIDE - SERUM 107 mmol/L (98-107); CREATININE - SERUM 1.1 mg/dL (0.6-1.3); GLUCOSE 96 mg/dL (74-106); POTASSIUM - SERUM 3.5 mmol/L (3.5-5.1); SODIUM 144 mmol/L (136-145); eGFR NON AFRICAN AMERICAN 75 mL/min (90-120)
[2018-05-16 06:15] LABS: UREA NITROGEN 14 mg/dL (7-18)
[2018-05-16 06:20] LABS: INR 1.2 (0.85-1.17); PROTIME 14.6 SECONDS (11.6-15.0)
[2018-05-16 07:37] VITALS: BP 119/57
[2018-05-16 12:12] VITALS: BP 142/83
[2018-05-16 16:15] VITALS: BP 106/64
[2018-05-16 20:45] VITALS: BP 125/59
[2018-05-17 00:17] VITALS: BP 115/66
[2018-05-17 02:44] LABS: HEMATOCRIT 30.1 % (42.0-54.0); MCH 30.1 pg (26.0-34.0); MCHC 33.2 g/dL (31.0-37.0); MCV 90.7 fL (80.0-100.0); MEAN PLATELET VOLUME 9.8 fL (7.4-10.4); RBC 3.32 10x6/uL (4.20-6.10); WBC 5.1 10x3/uL (4.8-10.8)
[2018-05-17 05:04] VITALS: BP 144/85
[2018-05-17 08:01] LABS: HEMATOCRIT 30.5 % (42.0-54.0); HEMOGLOBIN 10.3 g/dL (13.5-17.5); MCH 30.8 pg (26.0-34.0); MCHC 33.8 g/dL (31.0-37.0); MCV 91.3 fL (80.0-100.0); MEAN PLATELET VOLUME 9.9 fL (7.4-10.4); RBC 3.34 10x6/uL (4.20-6.10); RDW 14.1 % (11.5-14.5); WBC 4.8 10x3/uL (4.8-10.8)
[2018-05-17 08:14] LABS: CALC OSMOLALITY 279 mosm/kg (275-300); CALCIUM 8.9 mg/dL (8.5-10.1); CARBON DIOXIDE 28.6 mmol/L (21.0-32.0); CHLORIDE - SERUM 105 mmol/L (98-107); CREATININE - SERUM 1.1 mg/dL (0.6-1.3); GLUCOSE 84 mg/dL (74-106); SODIUM 141 mmol/L (136-145); UREA NITROGEN 12 mg/dL (7-18); eGFR NON AFRICAN AMERICAN 75 mL/min (90-120)
[2018-05-17 08:29] LABS: INR 1.24 (0.85-1.17); PROTIME 15.1 SECONDS (11.6-15.0)
[2018-05-17 08:30] LABS: APTT 94.3 SECONDS (22.8-39.4)
[2018-05-17 09:08] VITALS: BP 116/62
[2018-05-17 12:14] VITALS: BP 96/48
[2018-05-17 16:18] VITALS: BP 132/75
[2018-05-17 20:00] VITALS: BP 105/62
[2018-05-18] VITALS: BP 102/52
[2018-05-18 01:23] LABS: HEMATOCRIT 31.2 % (42.0-54.0); HEMOGLOBIN 10.6 g/dL (13.5-17.5); MCH 31.1 pg (26.0-34.0); MCV 91.5 fL (80.0-100.0); MEAN PLATELET VOLUME 9.8 fL (7.4-10.4); RBC 3.41 10x6/uL (4.20-6.10); RDW 14.1 % (11.5-14.5); WBC 4.3 10x3/uL (4.8-10.8)
[2018-05-18 04:00] VITALS: BP 111/69
[2018-05-18 05:29] LABS: HEMATOCRIT 32.2 % (42.0-54.0); HEMOGLOBIN 10.7 g/dL (13.5-17.5); MCH 30.6 pg (26.0-34.0); MCHC 33.2 g/dL (31.0-37.0); RBC 3.5 10x6/uL (4.20-6.10); RDW 14.2 % (11.5-14.5)
[2018-05-18 05:32] LABS: WBC 5.4 10x3/uL (4.8-10.8)
[2018-05-18 05:40] LABS: INR 1.45 (0.85-1.17)
[2018-05-18 05:56] LABS: APTT > 200.0 SECONDS (22.8-39.4)
[2018-05-18 06:07] LABS: ANION GAP 14.3 mmol/L (8-16); CALCIUM 8.7 mg/dL (8.5-10.1); CARBON DIOXIDE 26.7 mmol/L (21.0-32.0); CREATININE - SERUM 1.2 mg/dL (0.6-1.3)
[2018-05-18 08:07] VITALS: BP 125/67
[2018-05-18 11:32] VITALS: BP 131/65
[2018-05-18 15:39] VITALS: BP 107/50
[2018-05-18 20:30] VITALS: BP 137/51
[2018-05-19 00:30] VITALS: BP 96/51
[2018-05-19 04:30] VITALS: BP 127/64
[2018-05-19 07:29] LABS: HEMATOCRIT 31.7 % (42.0-54.0); HEMOGLOBIN 10.3 g/dL (13.5-17.5); MCH 30.3 pg (26.0-34.0); MCHC 32.5 g/dL (31.0-37.0); MCV 93.2 fL (80.0-100.0); MEAN PLATELET VOLUME 10.1 fL (7.4-10.4); RBC 3.4 10x6/uL (4.20-6.10); RDW 14.3 % (11.5-14.5); WBC 4.5 10x3/uL (4.8-10.8)
[2018-05-19 07:47] LABS: APTT 81.6 SECONDS (22.8-39.4)
[2018-05-19 07:49] LABS: ANION GAP 11.8 mmol/L (8-16); CALCIUM 8.6 mg/dL (8.5-10.1); CARBON DIOXIDE 26.3 mmol/L (21.0-32.0); CREATININE - SERUM 1.2 mg/dL (0.6-1.3); POTASSIUM - SERUM 4.1 mmol/L (3.5-5.1)
[2018-05-19 08:16] VITALS: BP 107/67
[2018-05-19 11:21] VITALS: BP 111/69
[2018-05-19 15:55] VITALS: BP 101/64
[2018-05-19 20:30] VITALS: BP 130/75
[2018-05-20 00:30] VITALS: BP 122/68
[2018-05-20 03:28] LABS: HEMATOCRIT 32.3 % (42.0-54.0); HEMOGLOBIN 10.6 g/dL (13.5-17.5); MCH 30.3 pg (26.0-34.0); MCHC 32.8 g/dL (31.0-37.0); MCV 92.3 fL (80.0-100.0); MEAN PLATELET VOLUME 9.8 fL (7.4-10.4); RBC 3.5 10x6/uL (4.20-6.10); RDW 13.8 % (11.5-14.5); WBC 5.4 10x3/uL (4.8-10.8)
[2018-05-20 03:31] LABS: CALC OSMOLALITY 278 mosm/kg (275-300); CALCIUM 8.5 mg/dL (8.5-10.1); CARBON DIOXIDE 27.3 mmol/L (21.0-32.0); CHLORIDE - SERUM 103 mmol/L (98-107); CREATININE - SERUM 1.1 mg/dL (0.6-1.3); GLUCOSE 127 mg/dL (74-106); POTASSIUM - SERUM 4.2 mmol/L (3.5-5.1); SODIUM 138 mmol/L (136-145); UREA NITROGEN 16 mg/dL (7-18); eGFR NON AFRICAN AMERICAN 75 mL/min (90-120)
[2018-05-20 03:33] LABS: INR 1.58 (0.85-1.17); PROTIME 18.3 SECONDS (11.6-15.0)
[2018-05-20 03:34] LABS: APTT 89.6 SECONDS (22.8-39.4)
[2018-05-20 04:30] VITALS: BP 130/52
[2018-05-20 07:47] VITALS: BP 113/74
[2018-05-20 11:21] VITALS: BP 92/46
[2018-05-20 15:09] VITALS: BP 127/73
[2018-05-20 20:00] VITALS: BP 155/62
[2018-05-21 04:48] VITALS: BP 142/92
[2018-05-21 05:09] LABS: HEMATOCRIT 35.3 % (42.0-54.0); HEMOGLOBIN 11.6 g/dL (13.5-17.5); MCH 30.4 pg (26.0-34.0); MCHC 32.9 g/dL (31.0-37.0); MCV 92.7 fL (80.0-100.0); MEAN PLATELET VOLUME 10.1 fL (7.4-10.4); RBC 3.81 10x6/uL (4.20-6.10); RDW 14.1 % (11.5-14.5)
[2018-05-21 05:45] LABS: INR 2.03 (0.85-1.17); PROTIME 22.3 SECONDS (11.6-15.0)
[2018-05-21 05:50] LABS: ANION GAP 14.2 mmol/L (8-16); CALCIUM 8.8 mg/dL (8.5-10.1); CARBON DIOXIDE 25.6 mmol/L (21.0-32.0); CREATININE - SERUM 1.2 mg/dL (0.6-1.3); POTASSIUM - SERUM 3.8 mmol/L (3.5-5.1)
[2018-05-21 08:25] VITALS: BP 103/63
[2018-05-21 20:25] VITALS: BP 124/80
[2018-05-22] VITALS: BP 111/54
[2018-05-22 00:47] LABS: HEMATOCRIT 31.5 % (42.0-54.0); HEMOGLOBIN 10.2 g/dL (13.5-17.5); MCH 30.1 pg (26.0-34.0); MCHC 32.4 g/dL (31.0-37.0); MCV 92.9 fL (80.0-100.0); MEAN PLATELET VOLUME 9.7 fL (7.4-10.4); RBC 3.39 10x6/uL (4.20-6.10); RDW 13.9 % (11.5-14.5); WBC 6.2 10x3/uL (4.8-10.8)
[2018-05-22 04:00] VITALS: BP 103/45
[2018-05-22 05:52] LABS: HEMOGLOBIN 10.1 g/dL (13.5-17.5); MCH 30.1 pg (26.0-34.0); MCHC 32.6 g/dL (31.0-37.0); MCV 92.5 fL (80.0-100.0); MEAN PLATELET VOLUME 9.8 fL (7.4-10.4); RBC 3.35 10x6/uL (4.20-6.10); RDW 14.1 % (11.5-14.5); WBC 5.1 10x3/uL (4.8-10.8)
[2018-05-22 06:03] LABS: INR 2.34 (0.85-1.17); PROTIME 24.9 SECONDS (11.6-15.0)
[2018-05-22 06:11] LABS: ANION GAP 13.5 mmol/L (8-16); CARBON DIOXIDE 25.6 mmol/L (21.0-32.0); CREATININE - SERUM 1.3 mg/dL (0.6-1.3); POTASSIUM - SERUM 4.1 mmol/L (3.5-5.1)
[2018-05-22 06:34] LABS: APTT > 200.0 SECONDS (22.8-39.4)
[2018-05-22 08:19] VITALS: BP 102/57
[2018-05-22] MEDS ORDERED: FLORAJEN3 CAPS460 MG PO (11:06)
[2018-05-22] MEDS ORDERED: BACTRIM DS1 TAB PO (11:09)
[2018-05-22] MEDS ORDERED: TRIPLE ANTIBI28.4 GM TP (11:10)
[2018-05-22] MEDS ORDERED: ULTRAM50 MG PO (11:11)
[2018-05-22 12:25] VITALS: BP 108/61
== END 2018-05-22 15:35 | disposition home health service (06) | DRG 271 ==
LOC: D.MS 15:43 → D.ICU 15:43 → D.M2 05-15 14:50 → D.SDCHOLD 05-17 10:45 → D.M2 05-17 10:46
PROVIDERS: Internal Medicine Cardiovascular Disease; Radiology Diagnostic Radiology; Thoracic Surgery (Cardiothoracic Vascular Surgery)
PROC: 04RK0JZ Replacement of Right Femoral Artery with Synthetic Substitute, Open Approach (ICD-10-PCS; 2018-05-10)
PROC: 04CK0ZZ Extirpation of Matter from Right Femoral Artery, Open Approach (ICD-10-PCS; 2018-05-10)
PROC: 0HDHXZZ Extraction of Right Upper Leg Skin, External Approach (ICD-10-PCS; 2018-05-10)
PROC: 047P3ZZ Dilation of Right Anterior Tibial Artery, Percutaneous Approach (ICD-10-PCS; 2018-05-13)
PROC: 02HV33Z Insertion of Infusion Device into Superior Vena Cava, Percutaneous Approach (ICD-10-PCS; 2018-05-13)
PROC: B548ZZA Ultrasonography of Superior Vena Cava, Guidance (ICD-10-PCS; 2018-05-13)
PROC: 04CP3ZZ Extirpation of Matter from Right Anterior Tibial Artery, Percutaneous Approach (ICD-10-PCS; principal; 2018-05-13 09:30)
DX: T82.868A Thrombosis due to vascular prosthetic devices, implants and grafts, initial encounter (principal); L76.32 Postprocedural hematoma of skin and subcutaneous tissue following other procedure; T81.41XA Infection following a procedure, superficial incisional surgical site, initial encounter; Y83.8 Other surgical procedures as the cause of abnormal reaction of the patient, or of later complication, without mention of misadventure at the time of the procedure; L76.82 Other postprocedural complications of skin and subcutaneous tissue; L08.9 Local infection of the skin and subcutaneous tissue, unspecified; B96.20 Unspecified Escherichia coli [E. coli] as the cause of diseases classified elsewhere; K75.9 Inflammatory liver disease, unspecified; K74.60 Unspecified cirrhosis of liver; K21.9 Gastro-esophageal reflux disease without esophagitis

== ENCOUNTER → 2018-05-08 17:54 | Outpatient (CLI) | payer MEDICARE, MEDICAID ==
[2018-05-08 16:02] VITALS: BMI 32.2
== END | disposition home or self-care (01) ==
LOC: D.LABREF 17:54
DX: L08.9 Local infection of the skin and subcutaneous tissue, unspecified (principal)

== ENCOUNTER → 2018-05-24 09:42 | Outpatient (CLI) | payer MEDICARE, MEDICAID ==
[2018-05-09 10:07] VITALS: BMI 31.3
[~2018-05-24 09:42] MED LIST changes: +BACTRIM DS1 TAB PO; +FLORAJEN3 CAPS460 MG PO; +TRIPLE ANTIBI28.4 GM TP; +ULTRAM50 MG PO
[2018-05-24 10:23] LABS: INR 1.14 (0.85-1.17); PROTIME 14.1 SECONDS (11.6-15.0)
== END | disposition home or self-care (01) ==
LOC: D.LAB 05-09 08:45
PROVIDERS: Thoracic Surgery (Cardiothoracic Vascular Surgery)
DX: Z51.81 Encounter for therapeutic drug level monitoring (principal); Z79.01 Long term (current) use of anticoagulants; D68.59 Other primary thrombophilia

== ENCOUNTER → 2018-05-31 12:16 | Outpatient (CLI) | payer MEDICARE, MEDICAID ==
[2018-05-09 10:07] VITALS: BMI 31.3
[2018-05-31 13:02] LABS: INR 1.45 (0.85-1.17)
== END | disposition home or self-care (01) ==
LOC: D.LAB 12:16
PROVIDERS: Internal Medicine Cardiovascular Disease
DX: R79.1 Abnormal coagulation profile (principal)

== ENCOUNTER → 2018-06-03 09:10 | Outpatient (CLI) | payer MEDICARE, MEDICAID ==
[2018-05-09 10:07] VITALS: BMI 31.3
[2018-06-03 10:05] LABS: INR 1.69 (0.85-1.17); PROTIME 19.3 SECONDS (11.6-15.0)
== END | disposition home or self-care (01) ==
LOC: D.LAB 09:10
PROVIDERS: Thoracic Surgery (Cardiothoracic Vascular Surgery)
DX: Z51.81 Encounter for therapeutic drug level monitoring (principal); Z79.01 Long term (current) use of anticoagulants; D68.59 Other primary thrombophilia

== ENCOUNTER → 2018-06-10 12:49 | Outpatient (CLI) | payer MEDICARE, MEDICAID ==
[2018-06-10 13:30] LABS: INR 2.14 (0.85-1.17); PROTIME 23.2 SECONDS (11.6-15.0)
== END | disposition home or self-care (01) ==
LOC: D.LAB 12:49
PROVIDERS: Thoracic Surgery (Cardiothoracic Vascular Surgery)
DX: Z51.81 Encounter for therapeutic drug level monitoring (principal); Z79.01 Long term (current) use of anticoagulants; D68.59 Other primary thrombophilia

== ENCOUNTER → 2018-06-19 14:25 | Outpatient (CLI) | payer MEDICARE, MEDICAID ==
[2018-06-19 15:10] LABS: BASOPHILS 0.2 % (0-2); HEMATOCRIT 41.2 % (42.0-54.0); HEMOGLOBIN 13.7 g/dL (13.5-17.5); LYMPHOCYTES 34.9 % (15-50); MCH 29.6 pg (26.0-34.0); MCHC 33.3 g/dL (31.0-37.0); MEAN PLATELET VOLUME 9.9 fL (7.4-10.4); NEUTROPHILS 56.9 % (40-80); PLATELET COUNT 194 10x3/uL (130-400); RBC 4.63 10x6/uL (4.20-6.10); RDW 13.5 % (11.5-14.5); WBC 4.2 10x3/uL (4.8-10.8)
[2018-06-19 15:35] LABS: CALC OSMOLALITY 284 mosm/kg (275-300); CALCIUM 9.2 mg/dL (8.5-10.1); CARBON DIOXIDE 28.2 mmol/L (21.0-32.0); CHLORIDE - SERUM 104 mmol/L (98-107); CREATININE - SERUM 1.1 mg/dL (0.6-1.3); GLUCOSE 87 mg/dL (74-106); POTASSIUM - SERUM 4.2 mmol/L (3.5-5.1); SODIUM 142 mmol/L (136-145); UREA NITROGEN 21 mg/dL (7-18); eGFR NON AFRICAN AMERICAN 75 mL/min (90-120)
[2018-06-19 15:36] LABS: INR 2.05 (0.85-1.17); PROTIME 22.5 SECONDS (11.6-15.0)
== END | disposition home or self-care (01) ==
LOC: D.LAB 14:25
PROVIDERS: Thoracic Surgery (Cardiothoracic Vascular Surgery)
DX: Z51.81 Encounter for therapeutic drug level monitoring (principal); Z79.899 Other long term (current) drug therapy; Z79.01 Long term (current) use of anticoagulants

== ENCOUNTER → 2018-07-04 14:44 | Outpatient (CLI) | payer MEDICARE, MEDICAID ==
[2018-07-04 15:34] LABS: INR 1.52 (0.85-1.17); PROTIME 17.7 SECONDS (11.6-15.0)
== END | disposition home or self-care (01) ==
LOC: D.LAB 14:44
PROVIDERS: Thoracic Surgery (Cardiothoracic Vascular Surgery)
DX: Z51.81 Encounter for therapeutic drug level monitoring (principal); Z79.01 Long term (current) use of anticoagulants; D68.59 Other primary thrombophilia

== ENCOUNTER → 2018-07-08 11:05 | Outpatient (CLI) | payer MEDICARE, MEDICAID ==
[2018-07-08 12:03] LABS: INR 2.29 (0.85-1.17); PROTIME 24.5 SECONDS (11.6-15.0)
== END | disposition home or self-care (01) ==
LOC: D.LAB 11:05
PROVIDERS: Thoracic Surgery (Cardiothoracic Vascular Surgery)
DX: Z51.81 Encounter for therapeutic drug level monitoring (principal); Z79.01 Long term (current) use of anticoagulants; D68.59 Other primary thrombophilia

== ENCOUNTER → 2018-07-15 11:01 | Outpatient (CLI) | payer MEDICARE, MEDICAID ==
[2018-07-15 11:29] LABS: INR 2.43 (0.85-1.17); PROTIME 25.7 SECONDS (11.6-15.0)
== END | disposition home or self-care (01) ==
LOC: D.LAB 11:01
PROVIDERS: Thoracic Surgery (Cardiothoracic Vascular Surgery)
DX: Z51.81 Encounter for therapeutic drug level monitoring (principal); Z79.01 Long term (current) use of anticoagulants; D68.59 Other primary thrombophilia

== ENCOUNTER → 2018-07-30 11:32 | Outpatient (CLI) | payer MEDICARE, MEDICAID ==
[2018-07-30 12:05] LABS: INR 2.08 (0.85-1.17); PROTIME 22.7 SECONDS (11.6-15.0)
== END | disposition home or self-care (01) ==
LOC: D.LAB 11:32
PROVIDERS: ATTEND Thoracic Surgery (Cardiothoracic Vascular Surgery)
DX: D68.59 Other primary thrombophilia (principal); Z79.01 Long term (current) use of anticoagulants

== ENCOUNTER → 2018-08-13 12:58 | Outpatient (CLI) | payer MEDICARE, MEDICAID ==
[2018-08-13 13:27] LABS: INR 3.9 (0.85-1.17); PROTIME 37.4 SECONDS (11.6-15.0)
== END | disposition home or self-care (01) ==
LOC: D.LAB 12:58
PROVIDERS: ATTEND Thoracic Surgery (Cardiothoracic Vascular Surgery)
DX: Z51.81 Encounter for therapeutic drug level monitoring (principal); Z79.01 Long term (current) use of anticoagulants; D68.59 Other primary thrombophilia

== ENCOUNTER → 2018-09-11 12:25 | Outpatient (CLI) | payer OTHER, MEDICAID | END | disposition home or self-care (01) | LOC: D.US 12:25 | PROVIDERS: ATTEND Thoracic Surgery (Cardiothoracic Vascular Surgery) | DX: I70.211 Atherosclerosis of native arteries of extremities with intermittent claudication, right leg (principal) ==

== ENCOUNTER → 2019-02-12 06:40 | Outpatient (CLI) | payer OTHER, MEDICAID ==
[2019-02-12 08:45] LABS: INR 1.81 (0.85-1.17); PROTIME 20.3 SECONDS (11.6-15.0)
== END | disposition home or self-care (01) ==
LOC: D.US 12-17 13:00
PROVIDERS: ATTEND Thoracic Surgery (Cardiothoracic Vascular Surgery)
DX: I73.9 Peripheral vascular disease, unspecified (principal)